=== PATIENT | male | born 1945 | race Caucasian/White ===

== ENCOUNTER → 2017-05-30 | Outpatient (CLI) | payer BC ==
[~2017-05-30] MED LIST: FRRS300 PO; OMEP40CA PO; PRSUNK PO; TPRSRUNK PO
[2017-05-30 17:03] LABS: BLOOD UREA NITROGEN 17 mg/dl (7-18); CALCIUM 9.1 mg/dl (8.5-10.1); CARBON DIOXIDE 25 mmol/L (21-32); CREATININE 1.04 mg/dl (0.60-1.40); GLUCOSE 102 mg/dl (70-99); SODIUM 140 mmol/L (136-145)
== END | disposition home or self-care (01) ==
LOC: C.LAB 15:47
PROVIDERS: ATTEND Family Medicine
DX: I10 Essential (primary) hypertension (principal)

== ENCOUNTER 2020-05-30 18:02 | Inpatient (IN) ==
[2020-05-30] MEDS ORDERED: ONDANSETRON INJ 2 MG/ML 2 ML VIAL IV STA ×2 (18:36→21:22)
[2020-05-30] MEDS ORDERED: LIDOCAINE/EPINEPH/TETRACAINE 1 EA SYR EXT STA (18:37)
--- NOTE | 2020-05-30 18:44 | Emergency Department Note ---
Impression & Plan Cervical spine fracture, Fall, Forehead laceration, Complex laceration of face, Injury to ligament of cervical spine ED Provider Note INFORMANT: Patient ED PROVIDER(S): Mihai Barahona MD CHIEF COMPLAINT: Fall PLAN: Disposition: Admitted Condition: Good Outpatient prescription management: none Referral: None MEDICAL DECISION MAKING: Patient was evaluated. He had suffered lacerations to the forehead and face from his accidental fall. During the initial evaluation after examining his wounds he felt mildly nauseated and sweaty. He was noted to have a drop in his blood pressure. He stated he did not feel anything like this prior to the fall. He had an IV established. He was given Zofran and a 500 mL normal saline bolus. He felt much better. His drop in blood pressure resolved. I suspect a vagal response due to the evaluation and examination of his wounds. Let gel panda lied. He was sent for CT imaging. CT imaging questioned a C5 injury. I discussed this with the radiologist. MRI was ordered. The patient had his wounds repaired by Benji Mendoza PA-C. Please see his note for further details. The patient was found to have disruption of the anterior longitudinal ligament as well as disruption of the posterior longitudinal ligament. He was also noted to have orbital fractures on the right side. Clinically he did not have any entrapment or any significant eye findings. I discussed the case with orthopedic spine, Dr. Sow. The patient was already in a hard collar. He recommended a [place] J collar. He and I discussed having the patient admitted and he would consult on the patient given the possibility of this being an unstable injury. Patient was in agreement. Dr. Sow did ask for internal medicine to admit the patient. I did discuss the case with Dr. Callaway of the hospitalist service. She evaluated the patient and admitted him. We also discussed OMFS consultation and initiation of prophylactic antibiotic due to the sinus fracture. She did order clindamycin and will consult with Dr. Troncoso. Patient was reassessed multiple times in the ER. He was doing well. He remained neurologically intact. Triage Nursing notes reviewed and agree them. Additional history obtained from the patient's . I did inform her of the findings and need for admission. Vital Signs: reviewed and remarkable for no significant abnormalities Differential diagnosis: Concussion, contusion, soft tissue injury, fracture, subdural hematoma, epidural hematoma, intraparenchymal hemorrhage, as well as other pathologies. Diagnostics interpreted by me: Cardiac Monitoring: Cardiac monitoring ordered by me: The patient was placed on continuous cardiac monitoring and observed. It revealed a normal sinus rhythm at 64 beats per minute without ectopy or evidence of dysrhythmia. Imaging studies: CT scan of the head, facial bones, and cervical spine were negative for fracture or dislocation. Tissue injury noted. No intracranial bleeding or other pathology. Consultation(s): Dr. Sow orthopedic spine Dr. Callaway of hospitalist service HPI: The patient is a 75 year old male who presents to the Emergency Room with complaints of a fall. This started just prior to arrival and is from an accidental trip in his home. He was walking from one room to the other and caught his foot on a step. He fell forward and struck his right face and forehead. He said he felt completely normal prior to and it was accidental. He did not feel ill at all this week. The patient believes his tetanus shot is up-to-date. The patient also notes the following associated symptoms, minimal strain to the right trapezius, laceration to the forehead and lateral to the right eye. The patient has had pressure dressings applied by EMS for relieving factors. Current pain is rated as 2/10. Pt denies LOC, visual changes, neck pain, chest pain, breathing difficulties, nausea, vomiting, abdominal pain, back pain, extremity pain, numbness, weakness, or other complaints. ROS: See above HPI for pertinent positives & negatives. A total of 10 systems reviewed and were otherwise negative. PAST MEDICAL HISTORY:See Below , hypertension PAST SURGICAL HISTORY:See Below, fundoplication FAMILY HISTORY:See Below SOCIAL HISTORY:See Below, HOME MEDICATIONS:See Below ALLERGIES:See Below VITALS:See Below PHYSICAL EXAMINATION: GENERAL: Awake, alert, well-appearing, in no distress HENT: Normocephalic, large central forehead laceration noted with visible skull. No obvious skull defect. There is a laceration that is stellate and irregular lateral to the right eye. Oropharynx unremarkable. EYES: Normal conjunctiva on the left. Sclera non-icteric. There is a mild subconjunctival hemorrhage noted on the right side. Anterior chambers are clear. Pupils are equal round and reactive. EOMI. NECK: Inspection normal. Non-tender in the midline. Mild right lateral tenderness.. Supple. No nuchal rigidity. FROM. No masses. RESPIRATORY: Clear to auscultation. No wheezes. No rales. Normal respiratory effort. CARDIAC: Normal rate. Normal rhythm. No murmurs. No rubs. Extremities warm and well perfused. Pulses equal. No JVD. GI: Soft, non-distended. No tenderness to palpation. No rebound or guarding. No masses. RECTAL: Deferred. MUSCULOSKELETAL: Atraumatic. Chest examination reveals no tenderness. The back is symmetrical on inspection without obvious abnormality. There is no CVA t enderness to palpation. No joint edema. LOWER EXTREMITIES: Calves are equal size bilaterally and non-tender. No edema. No discoloration. NEURO: Normal sensorium. No sensory or motor deficits noted. SKIN: No rash or jaundice noted. ED COURSE: Critical Care: I have personally spent greater than 35 minutes of critical care time in the direct management of this patient. This includes bedside care, interpretation of diagnostic studies, and testing, discussion with consultants, patient, and family members, and other required patient management activities. These minutes are in excess of all separately billable procedures. Mihai Barahona MD Past Med/Surg History Medical History (Updated 05/31/20 @ 03:14 by Mihai Barahona MD) BPH (benign prostatic hyperplasia) Hypertension Surgical History (Updated 05/30/20 @ 22:57 by Missy Callaway DO) History of cholecystectomy History of hernia repair Family History (Updated 05/30/20 @ 22:57 by Misys Callaway DO) Other Family history non-contributory Social History (Updated 05/30/20 @ 22:57 by Missy Callaway DO) Smoking Status: Never smoker Second Hand Exposure: No; Hx Alcohol Use: Yes Alcohol type: beer, wine and hard liquor Hx Substance Use: No Preferred Language: Telugu Communication Ability: Effective [place] Required: No Beliefs That Will Affect Care: None marital status: Current Living Situation: Spouse Feels Safe at Home: Yes Assistive Devices: Glasses Allergies Allergies Allergy/AdvReac Type Severity Reaction Status Date / Time Penicillins Allergy Unknown Unknown Verified 05/30/20 20:23 Sulfa (Sulfonamide Allergy Unknown Unknown Verified 05/30/20 20:23 Antibiotics) Home Meds Home Medications Medication Instructions Recorded Confirmed finasteride 5 mg PO DAILY 05/05/19 05/30/20 hydrochlorothiazide 25 mg PO DAILY 05/05/19 05/30/20 metoprolol tartrate 50 mg PO BID 05/05/19 05/30/20 glucos sul [id number] 2 cap PO BID 05/30/20 05/30/20 [Glucosamine Chondroitin] lisinopril 40 mg PO DAILY 05/30/20 05/30/20 multivitamin [Multiple Vitamin] 1 tab PO DAILY 05/30/20 05/30/20 vitamin [id number] acid 1 tab PO DAILY 05/30/20 05/30/20 Results & Data (ED) Vital Signs Vital Signs - 24 hr 05/30/20 18:06 05/30/20 18:09 05/30/20 18:30 Temperature 36.4 C L Temperature Source Oral Pulse Rate 71 72 74 Pulse Rate from SpO2 Sensor 71 70 Respiratory Rate 16 18 22 Respiratory Effort / Characteristics Non-Labored Spontaneous Respiratory Depth Normal Respiratory Pattern Regular Blood Pressure 104/63 104/63 83/55 L Blood Pressure Mean 76 76 64 Pulse Oximetry 97 94 93 Oxygen Delivery Method Room Air Sepsis Recent Fever Within 48 Hours No Sepsis New/Unexplained Change in Mental Status No Sepsis Action Taken by Nursing No Action Required 05/30/20 18:34 05/30/20 18:35 05/30/20 18:39 Temperature Temperature Source Pulse Rate 64 65 62 Pulse Rate from SpO2 Sensor 66 61 Respiratory Rate 14 18 16 Respiratory Effort / Characteristics Respiratory Depth Respiratory Pattern Blood Pressure 75/41 L 74/40 L 57/35 L Blood Pressure Mean 52 51 42 Pulse Oximetry 95 95 98 Oxygen Delivery Method Sepsis Recent Fever Within 48 Hours Sepsis New/Unexplained Change in Mental Status Sepsis Action Taken by Nursing 05/30/20 18:41 05/30/20 18:43 05/30/20 18:45 Temperature Temperature Source Pulse Rate 58 L 60 59 L Pulse Rate from SpO2 Sensor 58 L 60 59 L Respiratory Rate 16 17 12 Respiratory Effort / Characteristics Respiratory Depth Respiratory Pattern Blood Pressure 64/42 L 78/47 L 95/50 L Blood Pressure Mean 49 57 65 Pulse Oximetry 93 93 94 Oxygen Delivery Method Sepsis Recent Fever Within 48 Hours Sepsis New/Unexplained Change in Mental Status Sepsis Action Taken by Nursing 05/30/20 18:50 05/30/20 18:56 05/30/20 20:05 Temperature Temperature Source Pulse Rate 61 74 81 Pulse Rate from SpO2 Sensor 61 69 80 Respiratory Rate 14 19 12 Respiratory Effort / Characteristics Respiratory Depth Respiratory Pattern Blood Pressure 107/73 100/63 132/72 Blood Pressure Mean 84 75 92 Pulse Oximetry 95 95 100 Oxygen Delivery Method Room Air Room Air Room Air Sepsis Recent Fever Within 48 Hours Sepsis New/Unexplained Change in Mental Status Sepsis Action Taken by Nursing 05/30/20 21:30 05/30/20 21:35 05/30/20 21:40 Temperature Temperature Source Pulse Rate Pulse Rate from SpO2 Sensor 87 85 89 Respiratory Rate 20 18 Respiratory Effort / Characteristics Respiratory Depth Respiratory Pattern Blood Pressure 113/65 135/69 121/83 Blood Pressure Mean 81 91 95 Pulse Oximetry 96 96 96 Oxygen Delivery Method Room Air Room Air Room Air Sepsis Recent Fever Within 48 Hours Sepsis New/Unexplained Change in Mental Status Sepsis Action Taken by Nursing 05/30/20 21:45 05/30/20 21:50 05/30/20 21:55 Temperature Temperature Source Pulse Rate Pulse Rate from SpO2 Sensor 91 H 88 88 Respiratory Rate Respiratory Effort / Characteristics Respiratory Depth Respiratory Pattern Blood Pressure 130/79 124/70 119/68 Blood Pressure Mean 96 88 85 Pulse Oximetry 96 95 95 Oxygen Delivery Method Room Air Room Air Room Air Sepsis Recent Fever Within 48 Hours Sepsis New/Unexplained Change in Mental Status Sepsis Action Taken by Nursing 05/30/20 22:00 05/30/20 22:05 05/30/20 22:10 Temperature Temperature Source Pulse Rate Pulse Rate from SpO2 Sensor 91 H 87 87 Respiratory Rate Respiratory Effort / Characteristics Respiratory Depth Respiratory Pattern Blood Pressure 125/73 106/82 137/82 Blood Pressure Mean 90 90 100 Pulse Oximetry 94 95 96 Oxygen Delivery Method Room Air Room Air Room Air Sepsis Recent Fever Within 48 Hours Sepsis New/Unexplained Change in Mental Status Sepsis Action Taken by Nursing 05/30/20 22:15 05/30/20 22:21 05/30/20 22:25 Temperature Temperature Source Pulse Rate Pulse Rate from SpO2 Sensor 96 H 95 H 92 H Respiratory Rate 20 18 Respiratory Effort / Characteristics Respiratory Depth Respiratory Pattern Blood Pressure 117/83 106/82 127/64 Blood Pressure Mean 94 90 85 Pulse Oximetry 95 94 95 Oxygen Delivery Method Room Air Room Air Room Air Sepsis Recent Fever Within 48 Hours Sepsis New/Unexplained Change in Mental Status Sepsis Action Taken by Nursing 05/30/20 22:30 05/30/20 22:35 Temperature Temperature Source Pulse Rate Pulse Rate from SpO2 Sensor 95 H 99 H Respiratory Rate 18 20 Respiratory Effort / Characteristics Respiratory Depth Respiratory Pattern Blood Pressure 106/71 119/70 Blood Pressure Mean 82 86 Pulse Oximetry 93 94 Oxygen Delivery Method Room Air Room Air Sepsis Recent Fever Within 48 Hours Sepsis New/Unexplained Change in Mental Status Sepsis Action Taken by Nursing Laboratory Data Result diagrams: 05/30/20 18:40 05/30/20 23:03 Lab Results 05/30/20 05/30/20 05/30/20 Range/Units 18:40 18:40 22:30 WBC 13.78 H (4.8-10.8) K/uL RBC 4.88 (4.7-6.1) M/uL Hgb 14.6 (14.0-18.0) g/dL Hct 43.9 (42-52) % MCV 90.0 (80-100) fL MCH 29.9 (25-34) pg MCHC 33.3 (32-36) g/dL RDW Std Deviation 45.7 (36.4-46.3) fL RDW Coeff of Gi 13.9 (11.5-14.5) % Plt Count 389 (130-400) K/uL MPV 9.1 (7.4-10.4) fL Immature Gran % (Auto) 0.5 % Neut % (Auto) 69.8 % Lymph % (Auto) 22.0 % [place] % (Auto) 5.7 % Eos % (Auto) 1.9 % Baso % (Auto) 0.1 % Neut # (Auto) 9.62 H (1.4-6.5) K/uL Lymph # (Auto) 3.03 (1.2-3.4) K/uL [place] # (Auto) 0.78 H (0.11-0.59) K/uL Eos # (Auto) 0.26 (0-0.5) K/uL Baso # (Auto) 0.02 (0-0.2) K/uL Immature Gran # (Auto) 0.07 H (0.00-0.02) K/uL Sodium 140 (136-145) mmol/L Potassium 4.3 (3.5-5.1) mmol/L Chloride 111 H (98-107) mmol/L Carbon Dioxide 23 (21-32) mmol/L Anion Gap 7.0 (3-11) BUN 58 H (7-18) mg/dl Creatinine 1.90 H (0.6-1.4) mg/dl Est Cr Clr Drug Dosing 37.1 ml/min Est GFR ( Amer) 38.8 Est GFR (Non-Af Amer) 33.5 BUN/Creatinine Ratio 30.7 H (10-20) Glucose 127 H (70-99) mg/dl Calcium 10.1 (8.5-10.1) mg/dl Total Bilirubin 0.3 (0.2-1) mg/dl AST 12 L (15-37) U/L ALT 16 (12-78) U/L Alkaline Phosphatase 71 (45-117) U/L Total Protein 7.5 (6.4-8.2) gm/dl Albumin 3.3 L (3.4-5.0) gm/dl Globulin 4.2 H (2.5-4.0) gm/dl Albumin/Globulin Ratio 0.8 L (0.9-2) COVID-19 Eval [facility] SARS-CoV-2, RNA, NAAT (NEGATIVE) 05/30/20 Range/Units 22:30 WBC (4.8-10.8) K/uL RBC (4.7-6.1) M/uL Hgb (14.0-18.0) g/dL Hct (42-52) % MCV (80-100) fL MCH (25-34) pg MCHC (32-36) g/dL RDW Std Deviation (36.4-46.3) fL RDW Coeff of Gi (11.5-14.5) % Plt Count (130-400) K/uL MPV (7.4-10.4) fL Immature Gran % (Auto) % Neut % (Auto) % Lymph % (Auto) % [place] % (Auto) % Eos % (Auto) % Baso % (Auto) % Neut # (Auto) (1.4-6.5) K/uL Lymph # (Auto) (1.2-3.4) K/uL [place] # (Auto) (0.11-0.59) K/uL Eos # (Auto) (0-0.5) K/uL Baso # (Auto) (0-0.2) K/uL Immature Gran # (Auto) (0.00-0.02) K/uL Sodium (136-145) mmol/L Potassium (3.5-5.1) mmol/L Chloride (98-107) mmol/L Carbon Dioxide (21-32) mmol/L Anion Gap (3-11) BUN (7-18) mg/dl Creatinine (0.6-1.4) mg/dl Est Cr Clr Drug Dosing ml/min Est GFR ( Amer) Est GFR (Non-Af Amer) BUN/Creatinine Ratio (10-20) Glucose (70-99) mg/dl Calcium (8.5-10.1) mg/dl Total Bilirubin (0.2-1) mg/dl AST (15-37) U/L ALT (12-78) U/L Alkaline Phosphatase (45-117) U/L Total Protein (6.4-8.2) gm/dl Albumin (3.4-5.0) gm/dl Globulin (2.5-4.0) gm/dl Albumin/Globulin Ratio (0.9-2) COVID-19 Eval Order SARS-CoV-2, RNA, NAAT NEGATIVE (NEGATIVE) Administered Medications Lactated Ringer's (Lr) 1,000 mls @ 125 mls/hr IV .Q8H [facility] [place] Stop: 05/31/20 17:27 Last Admin: 05/31/20 02:16 Dose: 125 mls/hr Documented by: [id number] Clindamycin Phosphate 900 mg/ (Dextrose) 56 mls @ 112 mls/hr IV Q8H [facility] [place] Stop: 06/10/20 01:59 Last Admin: 05/31/20 02:16 Dose: 112 mls/hr Documented by: [id number] Discontinued Medications Acetaminophen (Acetaminophen 325 Mg Tab) Confirm Administered Dose 650 mg .ROUTE .STK-MED ONE Stop: 05/30/20 23:02 Last Admin: 05/30/20 23:05 Dose: 650 mg Documented by: [id number] Acetaminophen (Acetaminophen 325 Mg Tab) 650 mg PO NOW STA Stop: 05/31/20 00:04 Last Admin: 05/31/20 00:46 Dose: Not Given Documented by: [id number] Sodium Chloride (Nss) 500 mls @ 999 mls/hr IV .Q31M [facility] [place] Stop: 05/30/20 19:15 Last Infusion: 05/30/20 19:15 Dose: 0 mls/hr Documented by: [id number] Admin: 05/30/20 18:41 Dose: 999 mls/hr Documented by: [id number] Ioversol (Optiray 320 125ml) 125 ml IV ONCE ONE Stop: 05/30/20 23:41 Last Admin: 05/30/20 23:40 Dose: 118 ml Documented by: [id number] Lidocaine (Lidocaine/Epineph/Tetracaine 1 Ea Syr) 1 ea EXT NOW STA Stop: 05/30/20 18:38 Last Admin: 05/30/20 18:44 Dose: 1 ea Documented by: [id number] Lidocaine (Lidocaine 5% 1 Patch) Confirm Administered Dose 1 patch TD .STK-MED ONE Stop: 05/30/20 23:02 Last Admin: 05/30/20 23:06 Dose: 1 patch Documented by: [id number] Lidocaine HCl (Xylocaine 1%/Sod Bicarb 20 Ml Vial) Confirm Administered Dose 20 ml INFIL .STK-MED ONE Stop: 05/30/20 21:51 Last Admin: 05/30/20 21:53 Dose: 20 ml Documented by: [id number] Ondansetron HCl (Ondansetron Inj 2 Mg/Ml 2 Ml Vial) 4 mg IV NOW STA Stop: 05/30/20 18:37 Last Admin: 05/30/20 18:44 Dose: 4 mg Documented by: [id number] Ondansetron HCl (Ondansetron Inj 2 Mg/Ml 2 Ml Vial) 4 mg IV NOW STA Stop: 05/30/20 21:23 Last Admin: 05/30/20 21:26 Dose: 4 mg Documented by: [id number] Ondansetron HCl (Ondansetron Inj 2 Mg/Ml 2 Ml Vial) 4 mg IV NOW STA Stop: 05/31/20 00:04 Last Admin: 05/31/20 00:46 Dose: Not Given Documented by: [id number] Ondansetron HCl (Ondansetron Inj 2 Mg/Ml 2 Ml Vial) Confirm Administered Dose 4 mg .ROUTE .STK-MED ONE Stop: 05/31/20 00:20 Last Admin: 05/31/20 00:24 Dose: 4 mg Documented by: [id number] Oxycodone HCl (Oxycodone Hcl Ir 5 Mg Tab (Immediate Release)) 5 mg PO NOW STA Stop: 05/31/20 00:37 Last Admin: 05/31/20 00:46 Dose: 5 mg Documented by: [id number] Discharge Plan Visit Data Chief Complaint: Fall Stated Complaint: FALL w/ HEAD LAC ED Provider: Mihai Barahona Discharge Problem: Cervical spine fracture, Fall, Forehead laceration, Complex laceration of face, Injury to ligament of cervical spine Patient Disposition: Admitted As Inpatient Discharge Instructions Interventions: ED Discharge Assessment Last Done: 05/31/20 00:57 Discharge Problem: Forehead laceration Qualifiers: Encounter type: initial encounter Qualified Code(s): S01.81XA - Laceration without foreign body of other part of head, initial encounter
[2020-05-30] MEDS ORDERED: SODIUM CHLORIDE 0.9% 500 ML IV SCH (18:45)
[2020-05-30 18:48] LABS: Basophils # (auto) 0.02 K/uL (0-0.2); Basophils % (auto) 0.1 %; Eosinophils # (auto) 0.26 K/uL (0-0.5); Eosinophils % (auto) 1.9 %; Hematocrit (blood only) 43.9 % (42-52); Hemoglobin 14.6 g/dL (14.0-18.0); Immature Granulocytes # (auto) 0.07 K/uL (0.00-0.02); Immature Granulocytes % (auto) 0.5 %; Lymphocytes # (auto) 3.03 K/uL (1.2-3.4); Mean Corpuscular Hemoglobin 29.9 pg (25-34); Mean Corpuscular Hgb Conc 33.3 g/dL (32-36); Mean Platelet Volume 9.1 fL (7.4-10.4); Monocytes # (auto) 0.78 K/uL (0.11-0.59); Monocytes % (auto) 5.7 %; Neutrophils # (auto) 9.62 K/uL (1.4-6.5); Neutrophils % (auto) 69.8 %; Platelet Count 389 K/uL (130-400); RDW Coefficient of Variation 13.9 % (11.5-14.5); RDW Standard Deviation 45.7 fL (36.4-46.3); Red Blood Count 4.88 M/uL (4.7-6.1); White Blood Count 13.78 K/uL (4.8-10.8)
--- NOTE | 2020-05-30 19:30 | CT Scan Report ---
HEAD CT NONCONTRAST CT DOSE: HISTORY: fall TECHNIQUE: Multiaxial CT images of the head were performed without the use of intravenous contrast. A utomated exposure control was utilized for this study. A dose lowering technique was utilized adheri ng to the principles of ALARA. Comparison: None. Findings: Trace fluid within the right maxillary sinus. The mastoid air cells are clear. Right fronta l scalp swelling with a small laceration. The calvarium and skull base are intact. The ventricles and sulci are within normal limits. There is no mass, hematoma, midline shift, or acute infarct. Impression: No acute intracranial abnormality. Right frontal scalp injury. ACT 112: Negative or not required by law. Electronically signed by: Alvarado Bernal M.D. 05/30/2020 7:29 PM
--- NOTE | 2020-05-30 19:35 | CT Scan Report ---
CERVICAL SPINE CT CT DOSE: HISTORY: fall TECHNIQUE: Multiaxial CT images of the cervical spine were performed and reformatted in the sagittal and coronal plane without the use of contrast. A dose lowering technique was utilized adhering to th e principles of ALARA. COMPARISON: None. FINDINGS: The C4-C5 posterior elements are fused. No subluxation. Moderate disc space narrowing at C5 -C6. Prevertebral soft tissues and the C1-C2 interval are intact. No pneumothorax. Small lucency at t he spinous process of C5. There is no surrounding edema. Therefore, this favors a vascular channel. A small nondisplaced fracture cannot be excluded. Otherwise, no fractures identified within the cervic al spine. IMPRESSION: Small lucency at the spinous process of C5 without surrounding edema. Therefore, this favors a vascul ar channel. A small nondisplaced fracture cannot be excluded. ACT 112: Negative or not required by law. Electronically signed by: Alvarado Bernal M.D. 05/30/2020 7:34 PM
--- NOTE | 2020-05-30 19:41 | Emergency Department Note ---
ED Visit Note 75-year-old male who I was asked by Dr. Barahona to perform facial laceration repairs. Please see Dr. Barahona's dictation for further treatment and final disposition. PROCEDURE NOTE: Examination shows 2 separate fascial lacerations. The larger central forehead laceration is moderately gaping, and measures 5 cm in length. No active bleeding or hematoma formation. The patient also has a stellate and macerated laceration at the right eye margin and upper eyelid/lower eyebrow region. There is a flap of tissue that is approximately 1.75 cm x 4 mm, that is avulsed from the upper eyebrow lesion, and reflected inferolaterally. The tissue surrounding the flap is also macerated without any obvious soft tissue loss. The laceration curves around the inferolateral eyes/lower eyelid region as well with mild gaping. The patient provided verbal consent for laceration repair under local anesthesia. LET gel was initially applied for local anesthesia. Peripheral tissue was then cleansed with iodine. Initial attention was directed to the central forehead laceration. In sterile fashion, the wound was explored to show no underlying debris or active bleeding. Underlying subcutaneous tissue with a total length of 5 cm was approximated using mostly 4-0 Vicryl running sutures with occasional interruption. The wound was then reirrigated, with final closure using 5-0 nylon simple interrupted sutures. Total wound repair length of each subcutaneous Vicryl closure, and external nylon closure was 5 cm in length. Attention was then directed to the stellate laceration of the lateral eye region. I did close the inferolateral lacerations with 6-0 nylon simple erupted sutures. Wound evaluation was discussed again with Dr. Barahona, who felt that the flap could be successfully approximated with additional 6-0 nylon simple interrupted sutures. I did have to apply additional buffered lidocaine 1% local injection, which helped to further expand the tissue for ease of approximation. The wound was then grossly approximated with additional 6-0 nylon simple erupted sutures. Total repaired length was 4 cm. Patient did not have any bleeding from wound repair, and tolerated the procedure well. . : Forehead laceration Qualifiers: Encounter type: initial encounter Qualified Code(s): S01.81XA - Laceration without foreign body of other part of head, initial encounter
--- NOTE | 2020-05-30 19:48 | CT Scan Report ---
MAXILLOFACIAL CT CT DOSE: 1089.15 mGy.cm HISTORY: fall TECHNIQUE: Multiaxial CT images of the maxillofacial region were performed and reformatted in the cor onal plane without the use of contrast. A dose lowering technique was utilized adhering to the princ iples of ANGELO. COMPARISON: None. FINDINGS: Right orbital floor fracture demonstrating herniation of a small amount of intraorbital fat through the 5 mm defect along the medial aspect of the orbital floor. There is mild thickening of th e right inferior rectus muscle. There is trace extraconal hemorrhage. The orbital floor fracture is d epressed up to 4 mm. There is also nondisplaced fracture within the medial wall the right orbit. Righ t periorbital soft tissue swelling with a small laceration. Deformity within the nasal bones likely r epresent old, healed fractures. Trace fluid within the right maxillary sinus which likely represents hemorrhage. The skull base, pterygoid plates, mandible, zygomatic arches, and left orbit are intact. There is mild left nasal septal deviation. The globes and retrobulbar fat are intact. IMPRESSION: 1. Right orbital floor fracture which is mildly displaced and demonstrates a small amount of intraorb ital fat herniating through a 5 mm defect. The right inferior rectus muscle slightly thickened but do es not extend to the defect. Clinical correlation recommended to exclude the less likely possibility of entrapment. 2. Nondisplaced fracture within the medial wall of the right orbit. ACT 112: Negative or not required by law. Electronically signed by: Alvarado Bernal M.D. 05/30/2020 7:47 PM
--- NOTE | 2020-05-30 21:07 | Magnetic Resonance Report ---
CERVICAL SPINE MRI HISTORY: fall, C5 injury suspected on CT TECHNIQUE: Multiplanar multisequence MRI of the cervical spine was performed without the use of contr ast. COMPARISON STUDY: Cervical spine CT 05/30/2020. FINDINGS: Straightening of cervical spine. Moderate disc space narrowing at C5-C6. There is edema bot h within and surrounding the C5 spinous process. Therefore, the CT finding would be consistent with a n acute nondisplaced fracture at the spinous process. There is also a full-thickness tear through the anterior longitudinal ligament at C6-C7. This is consistent with acute injury. There is fluid/fractu re through the C6-C7 disc space with prevertebral edema from C6 through T1. There appears to be a pos sible tear through the posterior longitudinal ligament at the C5-C6 level. Therefore, these findings are consistent with an unstable cervical spine injury. There is also mild marrow edema within the lef t C6 facet which could also represent an occult injury. No additional fractures within the cervical s pine. The C1-C2 interval is intact. The visualized posterior fossa is unremarkable. Cervical spinal c ord demonstrates a normal signal intensity. There is trace fluid posterior to the C6 vertebral body m easuring 1 mm in thickness. This could represent a tiny epidural hematoma versus edema secondary to t he torn posterior longitudinal ligament. C2-C3: No significant central canal or neural foraminal narrowing. C3-C4: No significant central canal narrowing. There is moderate to severe left and mild right neural foraminal narrowing due to the uncovertebral hypertrophy. C4-C5: No significant central canal or neural foraminal narrowing. C5-C6: Broad-based posterior disc osteophyte complex which abuts and slightly deforms anterior cord c onsistent with mild central canal and mild bilateral neural foraminal narrowing. C6-C7: Small broad-based posterior disc osteophyte complex without significant central canal or neura l foraminal narrowing. C7-T1: No significant central canal or neural foraminal narrowing. IMPRESSION: 1. Edema both within and surrounding the C5 spinous process which would confirm the CT finding of an acute nondisplaced fracture at this location. 2. Full-thickness tear through the anterior longitudinal ligament at C6-C7 with fluid/fracture extend ing through the C6-C7 disc space. There is also suggestion of a small tear through the posterior long itudinal ligament at C5-C6. In conjunction with the C5-6 spinous process fracture, this is consistent with an unstable cervical spine injury. 3. Prevertebral edema from C6 through T1 due to the acute injury. 4. Trace fluid posterior to the C6 vertebral body measuring 1 mm in thickness. This could represent a tiny epidural hematoma versus edema secondary to the torn posterior longitudinal ligament. ACT 112: Negative or not required by law. Electronically signed by: Alvarado Bernal M.D. 05/30/2020 9:05 PM
[2020-05-30] MEDS ORDERED: XYLOCAINE 1%/SOD BICARB 20 ML VIAL INFIL ONE (21:50)
[2020-05-30 22:34] LABS: Albumin Level 3.3 gm/dl (3.4-5.0); BUN Creatinine Ratio 30.7 (10-20); Calcium 10.1 mg/dl (8.5-10.1); Creatinine Clr Calc Pharmacy 37.1 ml/min; Est GFR (African American) 38.8; Est GFR (Non-African American) 33.5; Potassium 4.3 mmol/L (3.5-5.1)
[2020-05-30 22:37] LABS: Albumin Globulin Ratio 0.8 (0.9-2); Bilirubin,Total 0.3 mg/dl (0.2-1); Globulin 4.2 gm/dl (2.5-4.0); Total Protein 7.5 gm/dl (6.4-8.2)
--- NOTE | 2020-05-30 22:47 | History & Physical Report ---
Date of Service May 30, 2020 Assessment & Plan (1) Ligament tear: 75yo male s/p mechanical fall resulting in head trauma, extension injury to cervical spine found with full-thickness tear through the anterior longitudinal ligament at C6-C7 with fluid/fracture. Possible small tear through the posterior longitudinal ligament at C5-C6. C5-C6 spinous process fracture. Patient with prevertebral edema from C6-T1. Patient doing well. He is neurologically intact. Pain is well controlled. Case was discussed with Orthopedics - possible OR in AM. -Admit to medical floor -Maintain cervical collar -Neuro checks q 4 hours -Orthopedics consultation appreciated -Pain control with Lidoderm patch, Tylenol and Oxycodone PRN -Check CTA neck to rule out possible vascular dissection given mechanism/severity of head trauma Patient with well controlled hypertension. He has no known CAD, no history of arrhythmia, CHF or other cardiac conditions. No history of pulmonary disease. He is active and independent. Able to complete 4 METS of activity without difficulty. No history of adverse reaction to anesthesia. Per RSRI criteria, patient is medically optimized to proceed to surgery with no additional testing. -Check PT/INR -NPO after midnight -Will hold HCTZ and Lisinopril perioperatively Present on Admission?: Yes (2) Cervical spine fracture: As above. S/p mechanical fall -Check CTA head -Maintain cervical collar -Ortho consultation appreciated Present on Admission?: Yes (3) Orbital fracture: No visual disturbance or entrapment -Continue to monitor -Surgical consultation if needed Present on Admission?: Yes (4) Forehead laceration: s/p repair -wound management -pain control as needed Present on Admission?: Yes (5) Hypertension: Blood pressure stable at present -Hold Lisinopril and HCTZ -Continue metoprolol -Continue to monitor Present on Admission?: Yes (6) BPH (benign prostatic hyperplasia): Chronic -Continue Finasteride F/E/N - LR at 125mL/hr x 2 liters, monitor renal function and electrolytes, NPO for possible OR in AM Ppx - SCDs Code - Full per discussion with patient Dispo - Admit to medical floor Present on Admission?: Yes History of Present Illness Chief Complaint: laceration, fall Primary Care Provider: Perry Vogel Malu is a 75yo male with history of HTN, BPH presenting after mechanical fall at home resulting in a C5-C6 spinous process fracture as well as full thickness tear through the anterior longitudinal ligament at C6-C7 - additional findings per imaging results below. Patient suffered facial trauma as well with right periorbital and forehead lacerations. He was walking in his home when he tripped over the carpet and fell, hitting his head on the dining room table, neck extended during time of injury. He had pain and bleeding from the forehead and right eye immediately following the event. Denies pain elsewhere. He denies CP/palpitations/dizziness/SOB preceding or following the event. He has full recollection of the fall and does not think he lost consciousness. He denies [place], visual disturbance, numbness, weakness. Presently with discomfort at the laceration sites as well as right shoulder discomfort/trapezius muscle tenderness. No additional complaints at this time. Upon arrival to the ER patient afebrile, HD stable, NAD. Lacerations repaired at bedside without difficulty. Patient did have a brief near-syncopal event with hypotension while ER attending was probing his lacerations. BP quickly improved with no intervention. ER course: Mike, NSS Allergies Allergy/AdvReac Type Severity Reaction Status Date / Time Penicillins Allergy Unknown Unknown Verified 05/30/20 20:23 Sulfa (Sulfonamide Allergy Unknown Unknown Verified 05/30/20 20:23 Antibiotics) Home Medications Medication Instructions Recorded Confirmed Type finasteride 5 mg PO DAILY 05/05/19 05/30/20 History hydrochlorothiazide 25 mg PO DAILY 05/05/19 05/30/20 History metoprolol tartrate 50 mg PO BID 05/05/19 05/30/20 History glucos sul [id number]-[id number]-C-Mn 2 cap PO BID 05/30/20 05/30/20 History [Glucosamine Chondroitin] lisinopril 40 mg PO DAILY 05/30/20 05/30/20 History multivitamin [Multiple Vitamin] 1 tab PO DAILY 05/30/20 05/30/20 History vitamin H10-axjfc acid 1 tab PO DAILY 05/30/20 05/30/20 History Past Med/Surg History Medical History (Updated 05/30/20 @ 23:30 by Missy Callaway DO) BPH (benign prostatic hyperplasia) Hypertension Surgical History (Updated 05/30/20 @ 22:57 by Missy Callaway DO) History of cholecystectomy History of hernia repair Family History (Updated 05/30/20 @ 22:57 by Missy Callaway DO) Other Family history non-contributory Social History (Updated 05/30/20 @ 22:57 by Missy Callaway DO) Smoking Status: Never smoker Hx Alcohol Use: Yes Hx Substance Use: No marital status: Feels Safe at Home: Yes Review of Systems Review of Systems: All systems reviewed & are unremarkable except as noted in HPI & below Physical Exam Physical Exam: General: patient resting comfortably, NAD, non-toxic in appearance, AA&O x 4 Skin: laceration repair with nylon sutures on forehead and right periorbital region - well approximated with no additional bleeding HEENT: PERRL, subconjunctival hemorrhage on right, EOMI, anicteric sclera, external ear normal to inspection and nontender, no hemotympanum, nares patent, moist mucus membranes, dentition intact, no oropharyngeal lesions, hard cervical collar in place, trachea midline, no LAD, no thyromegaly, no JVD Heart: +S1/S2, regular, 2/6 COLLIN at 2nd right ICS Lungs: equal air entry bilaterally, no rales/rhonchi/wheezes Abd: +BS, soft, NT/ND, no masses/organomegaly/ascites Ext: warm, 2+ pulses in UE/LE bilaterally, no clubbing/cyanosis or edema Neuro: nonfocal, patient AA&O x 4, speech intact, no facial droop, moving all extremities on command with equal strength 5/5 Results & Data Results & Data ([facility]) Vital Signs (Past 12 Hours) Vital Signs Temp Pulse Resp BP Pulse Ox 05/30/20 22:15 117/83 95 05/30/20 22:10 137/82 96 05/30/20 22:05 106/82 95 05/30/20 22:00 125/73 94 05/30/20 21:55 119/68 95 05/30/20 21:50 124/70 95 05/30/20 21:45 130/79 96 05/30/20 21:40 121/83 96 05/30/20 21:35 18 135/69 96 05/30/20 21:30 20 113/65 96 05/30/20 20:05 81 12 132/72 100 05/30/20 18:56 74 19 100/63 95 05/30/20 18:50 61 14 107/73 95 05/30/20 18:45 59 L 12 95/50 L 94 05/30/20 18:43 60 17 78/47 L 93 05/30/20 18:41 58 L 16 64/42 L 93 05/30/20 18:39 62 16 57/35 L 98 05/30/20 18:35 65 18 74/40 L 95 05/30/20 18:34 64 14 75/41 L 95 05/30/20 18:30 74 22 83/55 L 93 05/30/20 18:09 36.4 C L 72 18 104/63 94 05/30/20 18:06 71 16 104/63 97 Laboratory Results Lab Results 05/30/20 05/30/20 05/30/20 Range/Units 18:40 18:40 22:30 WBC 13.78 H (4.8-10.8) K/uL RBC 4.88 (4.7-6.1) M/uL Hgb 14.6 (14.0-18.0) g/dL Hct 43.9 (42-52) % MCV 90.0 (80-100) fL MCH 29.9 (25-34) pg MCHC 33.3 (32-36) g/dL RDW Std Deviation 45.7 (36.4-46.3) fL RDW Coeff of Gi 13.9 (11.5-14.5) % Plt Count 389 (130-400) K/uL MPV 9.1 (7.4-10.4) fL Immature Gran % (Auto) 0.5 % Neut % (Auto) 69.8 % Lymph % (Auto) 22.0 % [place] % (Auto) 5.7 % Eos % (Auto) 1.9 % Baso % (Auto) 0.1 % Neut # (Auto) 9.62 H (1.4-6.5) K/uL Lymph # (Auto) 3.03 (1.2-3.4) K/uL [place] # (Auto) 0.78 H (0.11-0.59) K/uL Eos # (Auto) 0.26 (0-0.5) K/uL Baso # (Auto) 0.02 (0-0.2) K/uL Immature Gran # (Auto) 0.07 H (0.00-0.02) K/uL Sodium 140 (136-145) mmol/L Potassium 4.3 (3.5-5.1) mmol/L Chloride 111 H (98-107) mmol/L Carbon Dioxide 23 (21-32) mmol/L Anion Gap 7.0 (3-11) BUN 58 H (7-18) mg/dl Creatinine 1.90 H (0.6-1.4) mg/dl Est Cr Clr Drug Dosing 37.1 ml/min Est GFR ( Amer) 38.8 Est GFR (Non-Af Amer) 33.5 BUN/Creatinine Ratio 30.7 H (10-20) Glucose 127 H (70-99) mg/dl Calcium 10.1 (8.5-10.1) mg/dl Total Bilirubin 0.3 (0.2-1) mg/dl AST 12 L (15-37) U/L ALT 16 (12-78) U/L Alkaline Phosphatase 71 (45-117) U/L Total Protein 7.5 (6.4-8.2) gm/dl Albumin 3.3 L (3.4-5.0) gm/dl Globulin 4.2 H (2.5-4.0) gm/dl Albumin/Globulin Ratio 0.8 L (0.9-2) COVID-19 [facility] Findings CERVICAL SPINE MRI HISTORY: fall, C5 injury suspected on CT TECHNIQUE: Multiplanar multisequence MRI of the cervical spine was performed without the use of contrast. COMPARISON STUDY: Cervical spine CT 05/30/2020. FINDINGS: Straightening of cervical spine. Moderate disc space narrowing at C5- C6. There is edema both within and surrounding the C5 spinous process. Therefore, the CT finding would be consistent with an acute nondisplaced fracture at the spinous process. There is also a full-thickness tear through the anterior longitudinal ligament at C6-C7. This is consistent with acute injury. There is fluid/fracture through the C6-C7 disc space with prevertebral edema from C6 through T1. There appears to be a possible tear through the posterior longitudinal ligament at the C5-C6 level. Therefore, these findings are consistent with an unstable cervical spine injury. There is also mild marrow edema within the left C6 facet which could also represent an occult injury. No additional fractures within the cervical spine. The C1-C2 interval is intact. The visualized posterior fossa is unremarkable. Cervical spinal cord demonstrates a normal signal intensity. There is trace fluid posterior to the C6 vertebral body measuring 1 mm in thickness. This could represent a tiny epidural hematoma versus edema secondary to the torn posterior longitudinal ligament. C2-C3: No significant central canal or neural foraminal narrowing. C3-C4: No significant central canal narrowing. There is moderate to severe left and mild right neural foraminal narrowing due to the uncovertebral hypertrophy. C4-C5: No significant central canal or neural foraminal narrowing. C5-C6: Broad-based posterior disc osteophyte complex which abuts and slightly deforms anterior cord consistent with mild central canal and mild bilateral neural foraminal narrowing. C6-C7: Small broad-based posterior disc osteophyte complex without significant central canal or neural foraminal narrowing. C7-T1: No significant central canal or neural foraminal narrowing. IMPRESSION: 1. Edema both within and surrounding the C5 spinous process which would confirm the CT finding of an acute nondisplaced fracture at this location. 2. Full-thickness tear through the anterior longitudinal ligament at C6-C7 with fluid/fracture extending through the C6-C7 disc space. There is also suggestion of a small tear through the posterior longitudinal ligament at C5-C6. In conjunction with the C5-6 spinous process fracture, this is consistent with an unstable cervical spine injury. 3. Prevertebral edema from C6 through T1 due to the acute injury. 4. Trace fluid posterior to the C6 vertebral body measuring 1 mm in thickness. This could represent a tiny epidural hematoma versus edema secondary to the torn posterior longitudinal ligament. ACT 112: Negative or not required by law. Electronically signed by: Alvarado Bernal M.D. 05/30/2020 9:05 PM Dictated: 05/30/202050Transcribed: 05/30/[address]50 HEAD CT NONCONTRAST CT DOSE: HISTORY: fall TECHNIQUE: Multiaxial CT images of the head were performed without the use of intravenous contrast. Automated exposure control was utilized for this study. A dose lowering technique was utilized adhering to the principles of ALARA. Comparison: None. Findings: Trace fluid within the right maxillary sinus. The mastoid air cells are clear. Right frontal scalp swelling with a small laceration. The calvarium and skull base are intact. The ventricles and sulci are within normal limits. There is no mass, hematoma, midline shift, or acute infarct. Impression: No acute intracranial abnormality. Right frontal scalp injury. ACT 112: Negative or not required by law. Electronically signed by: Alvarado Bernal M.D. 05/30/2020 7:29 PM Dictated: 05/30/201924Transcribed: 05/30/[address] DOSE: 1089.15 mGy.cm HISTORY: fall TECHNIQUE: Multiaxial CT images of the maxillofacial region were performed and reformatted in the coronal plane without the use of contrast. A dose lowering technique was utilized adhering to the principles of ALARA. COMPARISON: None. FINDINGS: Right orbital floor fracture demonstrating herniation of a small amount of intraorbital fat through the 5 mm defect along the medial aspect of the orbital floor. There is mild thickening of the right inferior rectus muscle. There is trace extraconal hemorrhage. The orbital floor fracture is depressed up to 4 mm. There is also nondisplaced fracture within the medial wall the right orbit. Right periorbital soft tissue swelling with a small laceration. Deformity within the nasal bones likely represent old, healed fractures. Trace fluid within the right maxillary sinus which likely represents hemorrhage. The skull base, pterygoid plates, mandible, zygomatic arches, and left orbit are intact. There is mild left nasal septal deviation. The globes and retrobulbar fat are intact. IMPRESSION: 1. Right orbital floor fracture which is mildly displaced and demonstrates a small amount of intraorbital fat herniating through a 5 mm defect. The right inferior rectus muscle slightly thickened but does not extend to the defect. Clinical correlation recommended to exclude the less likely possibility of e ntrapment. 2. Nondisplaced fracture within the medial wall of the right orbit. ACT 112: Negative or not required by law. Electronically signed by: Alvarado Bernal M.D. 05/30/2020 7:47 PM Dictated: 05/30/201933Transcribed: 05/30/[address] DOSE: HISTORY: fall TECHNIQUE: Multiaxial CT images of the cervical spine were performed and reformatted in the sagittal and coronal plane without the use of contrast. A dose lowering technique was utilized adhering to the principles of ALARA. COMPARISON: None. FINDINGS: The C4-C5 posterior elements are fused. No subluxation. Moderate disc space narrowing at C5-C6. Prevertebral soft tissues and the C1-C2 interval are intact. No pneumothorax. Small lucency at the spinous process of C5. There is no surrounding edema. Therefore, this favors a vascular channel. A small nondisplaced fracture cannot be excluded. Otherwise, no fractures identified within the cervical spine. IMPRESSION: Small lucency at the spinous process of C5 without surrounding edema. Therefore, this favors a vascular channel. A small nondisplaced fracture cannot be excluded. ACT 112: Negative or not required by law. Electronically signed by: Alvarado Bernal M.D. 05/30/2020 7:34 PM Dictated: 05/30/201928Transcribed: 05/30/201928 Code Status & VTE Plan VTE Prophylaxis Plan VTE Prophylaxis will be ordered: Yes PG Care Time/CCT Total # of Minutes Spent Total Time Spent with Patient: Total time spent is greater than 50% in coordination of care (as documented) at patient's floor/unit and/or counseling patient: Coding Level of Care Code 97132 Initial Inpt Care Lvl 3 Diagnoses Ligament tear T14.8XXA Cervical spine fracture S12.9XXA Encounter type: initial encounter Cervical vertebra fracture level: unspecified cervical vertebra Fracture type: closed Orbital fracture S02.85XA Encounter type: initial encounter Fracture type: closed Forehead laceration S01.81XA Encounter type: initial encounter Hypertension I10 Hypertension type: essential hypertension BPH (benign prostatic hyperplasia) N40.0 Lower urinary tract symptom presence: symptoms absent (1) Hypertension Hypertension type: essential hypertension Qualified Code(s): I10 - Essential (primary) hypertension (2) BPH (benign prostatic hyperplasia) Lower urinary tract symptom presence: symptoms absent Qualified Code(s): N40.0 - Benign prostatic hyperplasia without lower urinary tract symptoms (3) Forehead laceration Encounter type: initial encounter Qualified Code(s): S01.81XA - Laceration without foreign body of other part of head, initial encounter (4) Cervical spine fracture Encounter type: initial encounter Cervical vertebra fracture level: unspecified cervical vertebra Fracture type: closed Qualified Code(s): S12.9XXA - Fracture of neck, unspecified, initial encounter (5) Orbital fracture Encounter type: initial encounter Fracture type: closed Qualified Code(s): S02.85XA - Fracture of orbit, unspecified, initial encounter for closed fracture
[2020-05-30] MEDS ORDERED: ACETAMINOPHEN 325 MG TAB ONE (23:01)
[2020-05-30] MEDS ORDERED: LIDOCAINE 5% 1 PATCH TD ONE (23:01)
[2020-05-30 23:38] LABS: Albumin Level 3.5 gm/dl (3.4-5.0); BUN Creatinine Ratio 33.7 (10-20); Bilirubin Direct 0.1 mg/dl (0-0.2); Creatinine Clr Calc Pharmacy 43.3 ml/min; Est GFR (African American) 46.7; Est GFR (Non-African American) 40.3; Magnesium 2.6 mg/dl (1.8-2.4); Potassium 4.5 mmol/L (3.5-5.1)
[2020-05-30] MEDS ORDERED: OPTIRAY 320 125ml IV ONE (23:40)
[2020-05-30 23:41] LABS: Bilirubin,Total 0.4 mg/dl (0.2-1); Total Protein 7.7 gm/dl (6.4-8.2)
[2020-05-31] MEDS ORDERED: ONDANSETRON INJ 2 MG/ML 2 ML VIAL IV STA (00:03)
[2020-05-31] MEDS ORDERED: ACETAMINOPHEN 325 MG TAB PO STA (00:03)
[2020-05-31] MEDS ORDERED: ONDANSETRON INJ 2 MG/ML 2 ML VIAL ONE ×3 (00:19→13:46)
[2020-05-31] MEDS ORDERED: oxyCODONE HCL IR 5 MG TAB (IMMEDIATE RELEASE) PO STA (00:36)
[2020-05-31] MEDS ORDERED: oxyCODONE HCL IR 5 MG TAB (IMMEDIATE RELEASE) PO PRN (01:28)
[2020-05-31] MEDS ORDERED: ACETAMINOPHEN 325 MG TAB PO PRN (01:28)
[2020-05-31] MEDS ORDERED: DOCUSATE SODIUM 100 MG CAP PO PRN (01:28)
[2020-05-31] MEDS: LACTATED RINGER'S 1,000 ML IV SCH ×3 (02:16→16:41)
[2020-05-31] MEDS: CLINDAMYCIN 900 MG in DEXTROSE 5% 50 ML IV SCH ×3 (02:16→18:03)
[2020-05-31] MEDS: ONDANSETRON INJ 2 MG/ML 2 ML VIAL IV PRN ×2 (03:28→08:24)
[2020-05-31 06:56] LABS: Basophils # (auto) 0.01 K/uL (0-0.2); Basophils % (auto) 0.1 %; Hematocrit (blood only) 42.7 % (42-52); Hemoglobin 14.1 g/dL (14.0-18.0); Immature Granulocytes # (auto) 0.05 K/uL (0.00-0.02); Immature Granulocytes % (auto) 0.3 %; Lymphocytes # (auto) 1.36 K/uL (1.2-3.4); Lymphocytes % (auto) 9.3 %; Mean Corpuscular Hemoglobin 29.7 pg (25-34); Mean Corpuscular Volume 90.1 fL (80-100); Mean Platelet Volume 8.8 fL (7.4-10.4); Monocytes # (auto) 0.75 K/uL (0.11-0.59); Monocytes % (auto) 5.1 %; Neutrophils # (auto) 12.52 K/uL (1.4-6.5); Neutrophils % (auto) 85.2 %; Platelet Count 327 K/uL (130-400); RDW Coefficient of Variation 13.8 % (11.5-14.5); RDW Standard Deviation 45.9 fL (36.4-46.3); Red Blood Count 4.74 M/uL (4.7-6.1); White Blood Count 14.69 K/uL (4.8-10.8)
[2020-05-31 07:04] LABS: Prothrombin Time 10.5 Seconds (9.0-12.0)
[2020-05-31 07:28] LABS: BUN Creatinine Ratio 31.6 (10-20); Calcium 9.7 mg/dl (8.5-10.1); Creatinine Clr Calc Pharmacy 46.6 ml/min; Est GFR (African American) 50.1; Est GFR (Non-African American) 43.2; Potassium 4.7 mmol/L (3.5-5.1)
--- NOTE | 2020-05-31 07:32 | Orthopedic Consultation ---
Date of Consultation May 31, 2020 Assessment & Plan (1) Injury to ligament of cervical spine: Patient has suffered an extension distraction injury of the cervical spine affecting the C6-7 and C5-6 levels. He demonstrates complete tears across the anterior and posterior longitudinal ligament as well as posterior element fracture. I am recommending an urgent anterior cervical discectomy and fusion at C5-6 C6-7 to address this instability and prevent any neurologic deterioration. I reviewed this in detail with the patient. Risk benefits pros cons alternatives outlined. We will try to surgery range performed as soon as possible. Present on Admission?: Yes History of Present Illness Reason for Consultation: Cervical spine fracture Attending Physician: Paradise Martin, DO History of Present Illness This is a very pleasant 75-year-old male that presents the emergency room late last evening. He did unfortunately fall at home struck his forehead against a table sustaining laceration and orbital fracture. But also upon his work-up determined to have an unstable cervical spine fracture. Today he describes some cervicalgia with radiation to the right trapezius musculature. He denies any numbness and tingling in the arms. His pain is well controlled. Denies any numbness or tingling in the lower extremities. Allergies Allergy/AdvReac Type Severity Reaction Status Date / Time Penicillins Allergy Unknown Unknown Verified 05/30/20 20:23 Sulfa (Sulfonamide Allergy Unknown Unknown Verified 05/30/20 20:23 Antibiotics) Home Medications Medication Instructions Recorded Confirmed Type finasteride 5 mg PO DAILY 05/05/19 05/30/20 History hydrochlorothiazide 25 mg PO DAILY 05/05/19 05/30/20 History metoprolol tartrate 50 mg PO BID 05/05/19 05/30/20 History glucos sul 5HWz-zxq-ahhkk-C-Mn 2 cap PO BID 05/30/20 05/30/20 History [Glucosamine Chondroitin] lisinopril 40 mg PO DAILY 05/30/20 05/30/20 History multivitamin [Multiple Vitamin] 1 tab PO DAILY 05/30/20 05/30/20 History vitamin G79-dgpgx acid 1 tab PO DAILY 05/30/20 05/30/20 History Patient History Medical History (Updated 05/31/20 @ 03:14 by Mihai Barahona MD) BPH (benign prostatic hyperplasia) Hypertension Surgical History (Updated 05/30/20 @ 22:57 by Missy Callaway DO) History of cholecystectomy History of hernia repair Family History (Updated 05/30/20 @ 22:57 by Missy Callaway DO) Other Family history non-contributory Social History (Updated 05/30/20 @ 22:57 by Missy Callaway DO) Smoking Status: Never smoker Second Hand Exposure: No; Hx Alcohol Use: Yes Alcohol type: beer, wine and hard liquor Hx Substance Use: No Preferred Language: Vietnamese Communication Ability: Effective Litigation Support Analyst Required: No Beliefs That Will Affect Care: None marital status: Current Living Situation: Spouse Feels Safe at Home: Yes Assistive Devices: Glasses Physical Exam Physical Exam: On exam the [employer] J collar is in place and fitting appropriately. He exhibits excellent strength detailed testing bilateral upper extremities. Sensory symmetric and intact to cold and light touch. He has full strength in lower extremities. Results & Data ([facility]) Vital Signs (Past 12 Hours) Vital Signs Temp Pulse Pulse Resp BP BP Pulse Ox 05/31/20 01:20 36.8 C 82 18 157/87 H 97 05/31/20 00:48 18 106/67 92 05/31/20 00:00 18 104/68 94 05/30/20 22:35 20 119/70 94 05/30/20 22:30 18 106/71 93 05/30/20 22:25 18 127/64 95 05/30/20 22:21 20 106/82 94 05/30/20 22:15 117/83 95 05/30/20 22:10 137/82 96 05/30/20 22:05 106/82 95 05/30/20 22:00 125/73 94 05/30/20 21:55 119/68 95 05/30/20 21:50 124/70 95 05/30/20 21:45 130/79 96 05/30/20 21:40 121/83 96 05/30/20 21:35 18 135/69 96 05/30/20 21:30 20 113/65 96 05/30/20 20:05 81 12 132/72 100
[2020-05-31] MEDS: FINASTERIDE 5 MG TAB PO SCH (07:37)
[2020-05-31] MEDS: METOPROLOL TARTRATE 50 MG TAB PO SCH ×2 (07:37→21:06)
--- NOTE | 2020-05-31 07:45 | CT Scan Report ---
CT ANGIOGRAM OF THE NECK CLINICAL HISTORY: Fall. Neck injury. COMPARISON STUDY: CT of the cervical spine performed earlier the same day 05/30/2020. TECHNIQUE: Following the IV administration of 118 of Optiray 320, CT angiogram of the neck was perfor med from the aortic arch to the skull base. Images are reviewed in the axial, sagittal, and coronal p lanes. 3-D MIPS images are created and assessed. IV contrast was administered without complication. A ll measurements were calculated based on NASCET criteria. A dose lowering technique was utilized adh ering to the principles of ALARA. CT DOSE: 643.41 mGy.cm FINDINGS: Thoracic aorta: There is atherosclerotic calcification of the thoracic aorta. Visualized portions of the thoracic aorta are normal in caliber. The aortic arch demonstrates bovine variant anatomy. Right carotid arterial system: The right common carotid artery is widely patent, as are the right int ernal and carotid arteries. There is tortuosity of the distal internal carotid artery. Minimal plaque is noted in the carotid bulb. Left carotid arterial system: The left common carotid artery is widely patent, as are the left international specialist al and external carotid arteries. Vertebral arteries: The vertebral arteries are patent bilaterally and codominant. There is no evidenc e of dissection. Subclavian arteries: Widely patent bilaterally. Intracranial vasculature: The visualized intracranial vessels at the skull base are patent. Jugular veins: Widely patent bilaterally. Brain parenchyma: The visualized brain parenchyma the skull base is within normal limits. Lung apices: Partially visualized upper lobe lung parenchyma appears clear. Soft tissues: The visualized pharyngeal soft tissues are normal in appearance noting angiographic pha se technique. The oropharyngeal airway appears widely patent. The salivary and thyroid glands are nor mal in appearance. No cervical lymphadenopathy is seen. Skeletal structures: The skeletal structures are osteopenic. The visualized calvarium at the skull ba se appears intact. The imaged cervical spine appears maintained noting multilevel spondylosis. No lyt ic or blastic lesion is seen.. Sinuses and mastoids: Mild mucosal thickening is noted within the ethmoid sinuses. There is trace flu id within the right maxillary antrum. The mastoid air cells are well pneumatized. There are chronic/h ealed right orbital floor fractures. IMPRESSION: Unremarkable CT angiogram of the neck. ACT 112: Negative or not required by law. Electronically signed by: Jaspreet Sparks M.D. 05/31/2020 7:44 AM
[2020-05-31] MEDS: LIDOCAINE 5% 1 PATCH TD SCH (08:27)
[2020-05-31] MEDS ORDERED: LIDOCAINE 5% 1 PATCH TD SCH (09:00)
[2020-05-31] MEDS ORDERED: MoRPHine SULFATE 2 MG/ML CARP IV PRN (09:54)
[2020-05-31] MEDS ORDERED: ATROPINE SULFATE 0.1 MG/ML 10ML SYR IV PRN (10:56)
[2020-05-31] MEDS ORDERED: ePHEDrine sulfate 50 MG/ML AMP IV PRN (10:56)
[2020-05-31] MEDS ORDERED: fentaNYL citrate 100 MCG/2 ML VIAL IV PRN (10:56)
[2020-05-31] MEDS ORDERED: HYDROmorphone INJ 1 MG/ML SYRINGE IV PRN ×2 (10:56→15:51)
[2020-05-31] MEDS ORDERED: MEPERIDINE HCL 25 MG/ML CARP/VIAL IV PRN (10:56)
[2020-05-31] MEDS ORDERED: ONDANSETRON INJ 2 MG/ML 2 ML VIAL IV PRN ×2 (10:56→15:51)
[2020-05-31] MEDS ORDERED: LABETALOL HCL IV 5 MG/ML 20ML IV PRN (10:56)
[2020-05-31] MEDS ORDERED: PHENYLEPHRINE 100MCG/ML 5ML SYR IV PRN (10:56)
--- NOTE | 2020-05-31 11:01 | Anesthesiology Consultation ---
Date of Service May 31, 2020 Covid 19 negative on 05/30/20. On 05/30/20 the patient had a mechanical fall resulting in a C5/6 vertebrate fracture. He also has facial trauma. He is neurologically intact and his head CT was negative for acute injury. Assessment & Plan (1) Encounter for pre-operative examination: Chart Review Chart Review: Acceptable Risk for Surgery and Patient NOT seen in Pre Admission Testing Consults Requested none History Surgery Operation Date: 05/31/20 12:25 Proposed Procedures p C5-C6, C6-C7 Anterior Cervical Discectomy and Fusion - Miguel Angel Sow DO Height/Weight Height: 5 ft 8 in Weight: 99.3 kg Allergies Allergy/AdvReac Type Severity Reaction Status Date / Time Penicillins Allergy Unknown Unknown Verified 05/30/20 20:23 Sulfa (Sulfonamide Allergy Unknown Unknown Verified 05/30/20 20:23 Antibiotics) Medications Home Medications Medication Instructions Recorded Confirmed Last Taken finasteride 5 mg PO DAILY 05/05/19 05/30/20 Unknown hydrochlorothiazide 25 mg PO DAILY 05/05/19 05/30/20 Unknown metoprolol tartrate 50 mg PO BID 05/05/19 05/30/20 Unknown glucos sul [id number] 2 cap PO BID 05/30/20 05/30/20 Unknown [Glucosamine Chondroitin] lisinopril 40 mg PO DAILY 05/30/20 05/30/20 Unknown multivitamin [Multiple Vitamin] 1 tab PO DAILY 05/30/20 05/30/20 Unknown vitamin [id number] acid 1 tab PO DAILY 05/30/20 05/30/20 Unknown Active Medications Generic Name Dose Route Start Last Admin Trade Name Richie PRN Reason Stop Dose Admin Finasteride 5 mg 05/31/20 09:00 05/31/20 07:37 Finasteride 5 Mg Tab PO 06/30/20 08:59 Not Given DAILY ANA PAULA Lactated Ringer's 1,000 mls @ 125 mls/hr 05/31/20 01:28 05/31/20 10:48 Lr IV 05/31/20 17:27 125 mls/hr .Q8H ANA PAULA Administration Clindamycin Phosphate 900 mg/ 56 mls @ 112 mls/hr 05/31/20 02:00 05/31/20 09:45 Dextrose IV 06/10/20 01:59 Infused Q8H ANA PAULA Infusion Lidocaine 1 patch 05/31/20 09:00 05/31/20 08:27 Lidocaine 5% 1 Patch TD 06/30/20 08:59 1 patch QAM ANA PAULA Administration Metoprolol Tartrate 50 mg 05/31/20 09:00 05/31/20 07:37 Metoprolol Tartrate 50 Mg Tab PO 06/30/20 08:59 Not Given BID ANA PAULA Morphine Sulfate 0.5 mg 05/31/20 09:54 05/31/20 10:44 Morphine Sulfate 2 Mg/Ml Carp IV 06/14/20 09:53 0.5 mg Q4H PRN Administration Pain Ondansetron HCl 4 mg 05/31/20 01:28 05/31/20 08:24 Ondansetron Inj 2 Mg/Ml 2 Ml Vial IV 06/30/20 01:27 4 mg Q6H PRN Administration Nausea And Vomiting Past Medical History Medical History BPH (benign prostatic hyperplasia) Hypertension Past Family History Family History Other Family history non-contributory Past Surgical History Surgical History History of cholecystectomy History of hernia repair Social History Smoking Status: Never smoker Do You Dip or Chew Tobacco: No Hx Alcohol Use: Yes Alcohol type: beer, wine and hard liquor alcohol intake frequency: a few times a month Hx Substance Use: No substance use type: does not use Physical Exam Vital Signs Last Vital Signs Temp 36.6 C 05/31/20 07:35 Pulse 89 05/31/20 07:35 Resp 20 05/31/20 07:35 BP 136/76 05/31/20 07:35 Pulse Ox 97 05/31/20 07:35 Testing Laboratory Results 05/31/20 06:36 05/31/20 06:36 PT 10.5 Seconds (9.0-12.0) 05/31/20 06:36 INR 1.0 (0.9-1.1) 05/31/20 06:36 Electrocardiogram Date: 05/31/20 Findings: + NSR @ (83) Cervical Spine Date: 05/30/20 CERVICAL SPINE MRI HISTORY: fall, C5 injury suspected on CT TECHNIQUE: Multiplanar multisequence MRI of the cervical spine was performed without the use of contrast. COMPARISON STUDY: Cervical spine CT 05/30/2020. FINDINGS: Straightening of cervical spine. Moderate disc space narrowing at C5- C6. There is edema both within and surrounding the C5 spinous process. Therefore, the CT finding would be consistent with an acute nondisplaced fracture at the spinous process. There is also a full-thickness tear through the anterior longitudinal ligament at C6-C7. This is consistent with acute injury. There is fluid/fracture through the C6-C7 disc space with prevertebral edema from C6 through T1. There appears to be a possible tear through the posterior longitudinal ligament at the C5-C6 level. Therefore, these findings are consistent with an unstable cervical spine injury. There is also mild marrow edema within the left C6 facet which could also represent an occult injury. No additional fractures within the cervical spine. The C1-C2 interval is intact. Th e visualized posterior fossa is unremarkable. Cervical spinal cord demonstrates a normal signal intensity. There is trace fluid posterior to the C6 vertebral body measuring 1 mm in thickness. This could represent a tiny epidural hematoma versus edema secondary to the torn posterior longitudinal ligament. C2-C3: No significant central canal or neural foraminal narrowing. C3-C4: No significant central canal narrowing. There is moderate to severe left and mild right neural foraminal narrowing due to the uncovertebral hypertrophy. C4-C5: No significant central canal or neural foraminal narrowing. C5-C6: Broad-based posterior disc osteophyte complex which abuts and slightly deforms anterior cord consistent with mild central canal and mild bilateral neural foraminal narrowing. C6-C7: Small broad-based posterior disc osteophyte complex without significant central canal or neural foraminal narrowing. C7-T1: No significant central canal or neural foraminal narrowing. IMPRESSION: 1. Edema both within and surrounding the C5 spinous process which would confirm the CT finding of an acute nondisplaced fracture at this location. 2. Full-thickness tear through the anterior longitudinal ligament at C6-C7 with fluid/fracture extending through the C6-C7 disc space. There is also suggestion of a small tear through the posterior longitudinal ligament at C5-C6. In conjunction with the C5-6 spinous process fracture, this is consistent with an unstable cervical spine injury. 3. Prevertebral edema from C6 through T1 due to the acute injury. 4. Trace fluid posterior to the C6 vertebral body measuring 1 mm in thickness. This could represent a tiny epidural hematoma versus edema secondary to the torn posterior longitudinal ligament. ACT 112: Negative or not required by law. Electronically signed by: Alvarado Bernal M.D. 05/30/2020 9:05 PM Dictated: 05/30/202050Transcribed: 05/30/202050 Other Testing CT ANGIOGRAM OF THE NECK CLINICAL HISTORY: Fall. Neck injury. COMPARISON STUDY: CT of the cervical spine performed earlier the same day 05/30/2020. TECHNIQUE: Following the IV administration of 118 of Optiray 320, CT angiogram of the neck was performed from the aortic arch to the skull base. Images are reviewed in the axial, sagittal, and coronal planes. 3-D MIPS images are created and assessed. IV contrast was administered without complication. All measurements were calculated based on NASCET criteria. A dose lowering technique was utilized adhering to the principles of ALARA. CT DOSE: 643.41 mGy.cm FINDINGS: Thoracic aorta: There is atherosclerotic calcification of the thoracic aorta. Visualized portions of the thoracic aorta are normal in caliber. The aortic arch demonstrates bovine variant anatomy. Right carotid arterial system: The right common carotid artery is widely patent, as are the right internal and carotid arteries. There is tortuosity of the distal internal carotid artery. Minimal plaque is noted in the carotid bulb. Left carotid arterial system: The left common carotid artery is widely patent, as are the left internal and external carotid arteries. Vertebral arteries: The vertebral arteries are patent bilaterally and codominant. There is no evidence of dissection. Subclavian arteries: Widely patent bilaterally. Intracranial vasculature: The visualized intracranial vessels at the skull base are patent. Jugular veins: Widely patent bilaterally. Brain parenchyma: The visualized brain parenchyma the skull base is within normal limits. Lung apices: Partially visualized upper lobe lung parenchyma appears clear. Soft tissues: The visualized pharyngeal soft tissues are normal in appearance noting angiographic phase technique. The oropharyngeal airway appears widely patent. The salivary and thyroid glands are normal in appearance. No cervical lymphadenopathy is seen. Skeletal structures: The skeletal structures are osteopenic. The visualized calvarium at the skull base appears intact. The imaged cervical spine appears maintained noting multilevel spondylosis. No lytic or blastic lesion is seen.. Sinuses and mastoids: Mild mucosal thickening is noted within the ethmoid sinuses. There is trace fluid within the right maxillary antrum. The mastoid air cells are well pneumatized. There are chronic/healed right orbital floor fractures. IMPRESSION: Unremarkable CT angiogram of the neck. ACT 112: Negative or not required by law. Electronically signed by: Jaspreet Sparks M.D. 05/31/2020 7:[address]AST CT DOSE: HISTORY: fall TECHNIQUE: Multiaxial CT images of the head were performed without the use of intravenous contrast. Automated exposure control was utilized for this study. A dose lowering technique was utilized adhering to the principles of ALARA. Comparison: None. Findings: Trace fluid within the right maxillary sinus. The mastoid air cells are clear. Right frontal scalp swelling with a small laceration. The calvarium a nd skull base are intact. The ventricles and sulci are within normal limits. There is no mass, hematoma, midline shift, or acute infarct. Impression: No acute intracranial abnormality. Right frontal scalp injury. ACT 112: Negative or not required by law. Electronically signed by: Alvarado Bernal M.D. 05/30/2020 7:29 PM Dictated: 05/30/201924Transcribed: 05/30/201924 Dictated: 05/31/20 0739Transcribed: 05/31/20 0739
[2020-05-31] MEDS ORDERED: BACITRACIN INJ 50,000 UNIT VIAL ONE (12:09)
[2020-05-31] MEDS ORDERED: SCOPOLAMINE 1 MG TDSY TD ONE (12:12)
[2020-05-31] MEDS ORDERED: fentaNYL citrate 100 MCG/2 ML VIAL ONE (12:12)
[2020-05-31] MEDS ORDERED: PHENYLEPHRINE 100MCG/ML 5ML SYR ONE (12:48)
--- NOTE | 2020-05-31 13:00 | Hospitalist Progress Note ---
Date of Service May 31, 2020 Assessment & Plan (1) Ligament tear: 75yo male s/p mechanical fall resulting in head trauma, extension injury to cervical spine found with full-thickness tear through the anterior longitudinal ligament at C6-C7 with fluid/fracture. Possible small tear through the posterior longitudinal ligament at C5-C6. C5-C6 spinous process fracture. Patient with prevertebral edema from C6-T1. Patient doing well. He is neurologically intact. Pain is well controlled. Case was discussed with Orthopedics - possible OR in AM. -Admit to medical floor -Maintain cervical collar -Neuro checks q 4 hours -Orthopedics planning OR 05/31 for C5-6, C6-7 fusion -Pain control with Lidoderm patch, Tylenol and Oxycodone PRN -Check CTA neck to rule out possible vascular dissection given mechanism/severity of head trauma Patient with well controlled hypertension. He has no known CAD, no history of arrhythmia, CHF or other cardiac conditions. No history of pulmonary disease. He is active and independent. Able to complete 4 METS of activity without difficulty. No history of adverse reaction to anesthesia. Per RSRI criteria, patient is medically optimized to proceed to surgery with no additional testing. -Check PT/INR (2) Cervical spine fracture: As above. S/p mechanical fall -Check CTA head -Maintain cervical collar -Ortho consultation appreciated (3) Orbital fracture: No visual disturbance or entrapment -Continue to monitor -Awaiting Dr. Troncoso c/s (4) Forehead laceration: s/p repair -wound management -pain control as needed (5) Hypertension: Blood pressure stable at present -Hold Lisinopril and HCTZ -Continue metoprolol -Continue to monitor (6) BPH (benign prostatic hyperplasia): Chronic -Continue Finasteride F/E/N - LR at 125mL/hr x 2 liters, monitor renal function and electrolytes, NPO for possible OR in AM Ppx - SCDs Code - Full per discussion with patient Dispo - Admit to medical floor Admission and Anticipated Discharge Date Admission Date: May 30, 2020 Review of Systems Review of Systems: Pertinent positives and negatives reviewed in HPI--all others negative Physical Exam Constitutional: WD/WN, vitals as above Eyes: normal visual vides by confrontation and + anicteric sclerae ENMT: R sided facial swelling around the orbit, bandaging clean and dry, lac erations noted Neck: collar in place Respiratory: normal respiratory effort, lungs clear to auscultation Cardiovascular: Rate/Rhythm: regular rate and regular rhythm Gastrointestinal (Abdomen): Inspection/Auscultation: abdomen not distended Percussion/Palpation: abdomen soft; abdomen nontender Musculoskeletal: Head/Neck/Chest: normocephalic and head atraumatic negative for edema, peripheral pulses intact Skin: no rashes, warm and dry Neurologic: awake; not confused Speech / Cognition: normal speech Psychiatric: A+Ox3, euthymic affect Results & Data Results & Data ([facility]) Vital Signs (Past 12 Hours) Vital Signs Temp Pulse Resp BP Pulse Ox 05/31/20 11:22 36.8 C 85 20 135/76 98 05/31/20 07:35 36.6 C 89 20 136/76 97 05/31/20 01:20 36.8 C 82 18 157/87 H 97 PG Care Time/CCT Total # of Minutes Spent Total Time Spent with Patient: Total time spent is greater than 50% in coordination of care (as documented) at patient's floor/unit and/or counseling patient: Coding Level of Care Code 64576 Subseq Hosp Care Lvl 3 Diagnoses Ligament tear T14.8XXA Cervical spine fracture S12.9XXA Orbital fracture S02.85XA Encounter type: initial encounter Fracture type: closed Forehead laceration S01.81XA Encounter type: initial encounter Hypertension I10 Hypertension type: essential hypertension BPH (benign prostatic hyperplasia) N40.0 Lower urinary tract symptom presence: symptoms absent (1) Orbital fracture Encounter type: initial encounter Fracture type: closed Qualified Code(s): S02.85XA - Fracture of orbit, unspecified, initial encounter for closed fracture (2) Forehead laceration Encounter type: initial encounter Qualified Code(s): S01.81XA - Laceration without foreign body of other part of head, initial encounter (3) Hypertension Hypertension type: essential hypertension Qualified Code(s): I10 - Essential (primary) hypertension (4) BPH (benign prostatic hyperplasia) Lower urinary tract symptom presence: symptoms absent Qualified Code(s): N40.0 - Benign prostatic hyperplasia without lower urinary tract symptoms
[2020-05-31] MEDS ORDERED: PROPOFOL IV EMULSION 10 MG/ML 20 ML VIAL IV ONE (13:07)
[2020-05-31] MEDS ORDERED: LIDOCAINE 2% 2 ML VIAL/AMP(20MG/ML) INFIL ONE (13:07)
[2020-05-31] MEDS ORDERED: DEXAMETHASONE SOD INJ 4 MG/ML VIAL ONE (13:07)
[2020-05-31] MEDS ORDERED: SUCCINYLCHOLINE CHLORIDE 20 MG/ML 10 ML VIAL IV ONE (13:07)
[2020-05-31] MEDS ORDERED: ROCURONIUM BROMIDE 10 MG/ML 5 ML VIAL IV ONE (13:07)
[2020-05-31] MEDS ORDERED: PHENYLEPHRINE HCL 10 MG/ML VIAL ONE (13:24)
[2020-05-31] MEDS ORDERED: FLOSEAL HEMOSTATIC MATRIX 10ML TOP ONE (13:31)
[2020-05-31] MEDS ORDERED: NEOSTIGMINE METHYLSULFATE 1 MG/ML 10ML VIAL ONE (13:51)
[2020-05-31] MEDS ORDERED: GLYCOPYRROLATE 0.2 MG/ML VIAL ONE (13:51)
--- NOTE | 2020-05-31 14:01 | Operative Report ---
Post Operative Report Pre & Post Diagnosis Operation Date: 05/31/20 12:25 Pre-Op Diagnosis: Mechanical Fall, Cervical Fracture, Injury to Ligament of Cervical Spine Post-Op Diagnosis: Mechanical Fall, Cervical Fracture, Injury to Ligament of Cervical Spine I identified the patient and participated in the time-out.: Yes Procedure Operation Date: 05/31/20 12:25 Actual Procedures #1 anterior cervical discectomy with bilateral foraminotomies C5-6 and C6-7. #2 anterior cervical arthrodesis C5-6 and C6-7. #3 placement of Spira 7 mm cage filled with DBM C5-C6 and 9 mm cage filled with DBM at C6-C7. #4 application of christy plate and screws across C5-6 and C6-7. Surgeon Miguel Angel Sow, Asparagus Buncher Reva Alonso Estimated Blood Loss 20 Findings Consistent with Post-Op Diagnosis Specimens None Indications This is a 75-year-old male presents after fall at home last evening. He has an extension distraction ligamentous tear across the 66 with spinous process fractures C5 and is here for urgent surgical stabilization. Description of Procedure Patient was met with identified informed consent obtained. Patient was then taken to the operative suite underwent a patient placed in a supine position on the Carlos Eduardo table the head Comer head ordered. All bony prominences well- padded eyes inspected to ensure no external pressure placed upon the. This point the anterior cervical spine was prepped and draped in a sterile fashion. The assistance of fluoroscopy identified the C6 vertebral body and a transverse incision was placed on the right anterior aspect of the cervical spinal lines region. Sharp dissection with assistance of bipolar electrocautery was performe d down to and exposing the anterior cervical spine from C5-C7. Obvious anterior disruption of the ligament was noted at C6-C7 entire disc base was distracted and disrupted. I did curette out the remaining disc fragments performed bilateral foraminotomies burred the endplates to subcortical bleeding bone and placed a 9 mm Spira cage filled with DBM in the C6-C7 disc base. Then proceeded to C5-C6 a complete discectomy was performed out to the uncovertebral joints bilaterally. I did perform bilateral foraminotomies remove the posterior annular fibers longitudinal ligament. The endplates were then burred to subcortically bone and a 7 mm spiral cage filled with DBM tapped in position. All anterior osteophytes were burred to a smooth cortical surface and a 5 complete and screws applied with the assistance of fluoroscopy. The incision was then copiously irrigated explored to ensure no damage to surrounding structures remaining bleeding. 10 round VIOLETA drain inserted. The incision was th en closed with 2 Vicryl in the fashion of 4 Monocryl for final skin closure. Steri-Strip sterile dressings placed. Patient will continue PACU stable condition. Please note spinal cord monitoring was utilized throughout the procedure and no changes noted. Drea Alonso was present at the entire procedure involved in patient positioning complex portions of the surgery and final skin closure. I attest to the content of the Intraoperative Record and any orders documented therein. Any exceptions are noted below.
--- NOTE | 2020-05-31 14:26 | Fluoroscopy Report ---
INTRAOPERATIVE RADIOGRAPHS CLINICAL HISTORY: Spinal fusion. Fluoroscopy time: 12 seconds. FINDINGS: 3 spot fluoroscopic views of the cervical spine are presented. There is postoperative hoskins e from discectomy at C5-C6 and C6-C7 with anterior spinal fusion from C5-C7. The orthopedic hardware appears intact. An endotracheal tube is in place. IMPRESSION: Intraoperative images from C5-C7 spinal fusion. Electronically signed by: Jaspreet Sparks M.D. 05/31/2020 2:25 PM
--- NOTE | 2020-05-31 15:04 | Anesthesiology Progress Note ---
Date of Service May 31, 2020 Anesthesia Post Procedure Vital Signs Vital Signs: Temp Pulse Pulse Pulse Resp BP BP 05/31/20 14:55 72 14 96/54 L 05/31/20 14:45 75 14 105/61 05/31/20 14:35 84 16 104/64 05/31/20 14:25 74 16 107/51 L 05/31/20 14:15 85 16 119/72 05/31/20 14:08 36.3 C L 96 H 16 125/78 05/31/20 11:22 36.8 C 85 20 135/76 05/31/20 07:35 36.6 C 89 20 136/76 05/31/20 01:20 36.8 C 82 18 157/87 H 05/31/20 00:48 18 106/67 05/31/20 00:00 18 104/68 05/30/20 22:35 20 119/70 05/30/20 22:30 18 106/71 05/30/20 22:25 18 127/64 05/30/20 22:21 20 106/82 05/30/20 22:15 117/83 05/30/20 22:10 137/82 05/30/20 22:05 106/82 05/30/20 22:00 125/73 05/30/20 21:55 119/68 05/30/20 21:50 124/70 05/30/20 21:45 130/79 05/30/20 21:40 121/83 05/30/20 21:35 18 135/69 05/30/20 21:30 20 113/65 05/30/20 20:05 81 12 132/72 05/30/20 18:56 74 19 100/63 05/30/20 18:50 61 14 107/73 05/30/20 18:45 59 L 12 95/50 L 05/30/20 18:43 60 17 78/47 L 05/30/20 18:41 58 L 16 64/42 L 05/30/20 18:39 62 16 57/35 L 05/30/20 18:35 65 18 74/40 L 05/30/20 18:34 64 14 75/41 L 05/30/20 18:30 74 22 83/55 L 05/30/20 18:09 36.4 C L 72 18 104/63 05/30/20 18:06 71 16 104/63 Pulse Ox 05/31/20 14:55 96 05/31/20 14:45 97 05/31/20 14:35 97 05/31/20 14:25 100 05/31/20 14:15 100 05/31/20 14:08 98 05/31/20 11:22 98 05/31/20 07:35 97 05/31/20 01:20 97 05/31/20 00:48 92 05/31/20 00:00 94 05/30/20 22:35 94 05/30/20 22:30 93 05/30/20 22:25 95 05/30/20 22:21 94 05/30/20 22:15 95 05/30/20 22:10 96 05/30/20 22:05 95 05/30/20 22:00 94 05/30/20 21:55 95 05/30/20 21:50 95 05/30/20 21:45 96 05/30/20 21:40 96 05/30/20 21:35 96 05/30/20 21:30 96 05/30/20 20:05 100 05/30/20 18:56 95 05/30/20 18:50 95 05/30/20 18:45 94 05/30/20 18:43 93 05/30/20 18:41 93 05/30/20 18:39 98 05/30/20 18:35 95 05/30/20 18:34 95 05/30/20 18:30 93 05/30/20 18:09 94 05/30/20 18:06 97 Pain Intensity Head: Pain Intensity: 4 Transfer of Care Handoff Completed per policy Notes Mental Status: alert / awake / arousable Patient Amnestic to Procedure: Yes Nausea / Vomiting: adequately controlled Pain: adequately controlled Airway Patency, RR, SpO2: stable & adequate BP & HR: stable & adequate Hydration State: stable & adequate Anesthetic Complications: no major complications apparent and Pt Satisfied with anesthetic care Notes: The patient is awake and comfortable. He is neurologically intact. His neck is not swollen and his dressing is dry.
--- NOTE | 2020-05-31 15:34 | Oral/Maxillofacial Consult ---
Date of Consultation May 31, 2020 History of Present Illness Attending Physician: Paradise Martin DO I REVIEWED THE CHART AND REVIEWED THE MAXILLOFACIAL CT SCAN Completed consult at 11 am Jun 01 2020 Oral Maxillofacial Surgery Exam-Orbital Floor Fracture, facial trauma Recent Problem: Fell (tripped on carpet) at home fell hit right eye area, head --blow out orbital Fx right side cervical injury. Present Complaint: From history no pain associated with right eye, No history of Double vision associated with this event No double vision, paraesthesia or pain on movement A detailed facial exam was completed Finding-left eye all WNL, right eye swollen, well sutured facial laceration right side --I will remove sutures as Out patient in office exophthalmos--- not able to determine for right ROM secondary to moderate swelling. Soft swelling, no hematoma. CT scan--independent interpretation of the CT scan and discussion with radiologist as needed. Reviewed in 3-D mode There is a minimal Fx of the right orbital floor with no evidence of entrapment with some fat into sinus. Surgical repair not likely I will wait until all ecchymosis and swelling decreases. Facial and Orbital Soft tissue: Ecchymosis as expected from facial trauma. sutured laceration Neck: please refer to ortho-spine Dr Sow`s report Plan: I saw Mr Toribio this AM and did a full head/neck evaluation of the maxillofacial area. His right eye has normal vision, he can move it with a good ROM I reviewed that I will see him in office early next week We will range to get him an Eye exam and to have his glasses adjusted as needed He has my contact information I will arrange follow up as needed regarding the right blow out fracture Overall Multi fractures of the orbital floor an sinus hart minimal displacement I will evaluate and finalize treatment plan once all the swelling has subsided. Allergies Allergy/AdvReac Type Severity Reaction Status Date / Time Penicillins Allergy Unknown Unknown Verified 05/30/20 20:23 Sulfa (Sulfonamide Allergy Unknown Unknown Verified 05/30/20 20:23 Antibiotics) Home Medications Medication Instructions Recorded Confirmed Type finasteride 5 mg PO DAILY 05/05/19 05/30/20 History hydrochlorothiazide 25 mg PO DAILY 05/05/19 05/30/20 History metoprolol tartrate 50 mg PO BID 05/05/19 05/30/20 History glucos sul [id number]-Mn 2 cap PO BID 05/30/20 05/30/20 History [Glucosamine Chondroitin] lisinopril 40 mg PO DAILY 05/30/20 05/30/20 History multivitamin [Multiple Vitamin] 1 tab PO DAILY 05/30/20 05/30/20 History vitamin F85-[id number] acid 1 tab PO DAILY 05/30/20 05/30/20 History Patient History Medical History BPH (benign prostatic hyperplasia) Hypertension Surgical History History of cholecystectomy History of hernia repair Family History Other Family history non-contributory Social History (Updated 05/30/20 @ 22:57 by Missy Callaway DO) Smoking Status: Never smoker Second Hand Exposure: No; Hx Alcohol Use: Yes Alcohol type: beer, wine and hard liquor Hx Substance Use: No Preferred Language: [place] Communication Ability: Effective Certified Emergency Vehicle Technician Required: No Beliefs That Will Affect Care: None marital status: Current Living Situation: Spouse Feels Safe at Home: Yes Assistive Devices: Brace/Splint/Immobilizer and Walker Results & Data ([facility]) Vital Signs (Past 12 Hours) Vital Signs Temp Pulse Pulse Resp BP Pulse Ox 05/31/20 15:15 36.3 C L 75 16 115/64 95 05/31/20 15:04 36.3 C L 75 18 112/58 L 98 05/31/20 14:55 72 14 96/54 L 96 05/31/20 14:45 75 14 105/61 97 05/31/20 14:35 84 16 104/64 97 05/31/20 14:25 74 16 107/51 L 100 05/31/20 14:15 85 16 119/72 100 05/31/20 14:08 36.3 C L 96 H 16 125/78 98 05/31/20 11:22 36.8 C 85 20 135/76 98 05/31/20 07:35 36.6 C 89 20 136/76 97 PG Care Time/CCT Total # of Minutes Spent Total Time Spent with Patient: Total time spent is greater than 50% in coordination of care (as documented) at patient's floor/unit and/or counseling patient: Coding Level of Care Code 27145 Initial Inpt Care Lvl 3
[2020-05-31] MEDS ORDERED: PROMETHAZINE HCL 12.5 MG in SODIUM CHLORIDE 0.9% 50 ML IV PRN (15:51)
[2020-05-31] MEDS ORDERED: dexAMETHasone 8 MG in SYRINGE 0 ML IV PRN (15:51)
[2020-05-31] MEDS ORDERED: NALOXONE HCL 0.4 MG/1 ML VIAL/CARP IV PRN (15:51)
[2020-05-31] MEDS ORDERED: hydrOXYzine HCl 25 MG TAB PO PRN (15:51)
[2020-05-31] MEDS ORDERED: RACEPINEPHRINE 2.25% NEBU SOLN 0.5 ML VIAL INH PRN (15:51)
[2020-05-31] MEDS ORDERED: FAMOTIDINE 20 MG TAB PO PRN (15:51)
[2020-05-31] MEDS ORDERED: HYDROmorphone INJ 0.5 MG/0.5 ML SYR IV PRN (15:51)
[2020-05-31] MEDS ORDERED: ALUMINUM/MAGNESIUM SUSP 30 ML UDC PO PRN (15:51)
[2020-05-31] MEDS ORDERED: traMADol HCL 50 MG TABLET PO PRN (15:51)
[2020-05-31] MEDS ORDERED: ACETAMINOPHEN 1,000 MG/100 ML VIAL IV PRN (15:51)
[2020-05-31] MEDS ORDERED: SOD PHOSPHATE/SOD BIPHOSPHATE ENEMA 132 ML BTL PR PRN (15:51)
[2020-05-31] MEDS ORDERED: MAGNESIUM HYDROXIDE SUSP 30 ML UDC PO PRN (15:51)
[2020-05-31] MEDS ORDERED: METOCLOPRAMIDE HCL INJ 5 MG/ML 2 ML VIAL IV PRN (15:51)
[2020-05-31] MEDS ORDERED: ACETAMINOPHEN 500 MG TAB PO PRN (15:51)
[2020-05-31] MEDS ORDERED: LORazepam 0.5 MG TAB PO PRN (15:51)
[2020-05-31] MEDS ORDERED: DO NOT ADMINISTER PNEUMOCOCCAL VACCINE PRN (15:51)
[2020-05-31] MEDS ORDERED: DO NOT ADMINISTER FLU VACCINE PRN (15:51)
[2020-05-31] MEDS ORDERED: ONDANSETRON 4 MG OD TAB PO PRN (15:51)
[2020-05-31] MEDS ORDERED: diphenhydrAMINE Capsule 25 MG CAP PO PRN (15:51)
[2020-05-31] MEDS ORDERED: LORazepam 0.5 MG/1 ML VIAL IV PRN (15:51)
--- NOTE | 2020-05-31 16:51 | Electrocardiogram Report ---
Test Reason : Blood Pressure : / mmHG Vent. Rate : 083 BPM Atrial Rate : 083 BPM P-R Int : 196 ms QRS Dur : 092 ms QT Int : 386 ms P-R-T Axes : 054 049 066 degrees QTc Int : 453 ms Normal sinus rhythm Normal ECG When compared with ECG of 05-MAY-2019 02:00, No significant change was found Confirmed by Vitaly Darnell ([id number]) on 05/31/2020 4:50:42 PM Referred By: REFERRED SELF Confirmed By:Rakan Darnell
[2020-05-31] MEDS ORDERED: CLINDAMYCIN 600 MG in DEXTROSE 5% 50 ML IV SCH (17:00)
[2020-05-31] MEDS: POLYETHYLENE (MIRALAX) 17 GM PACK PO SCH ×2 (17:34→23:56)
[2020-05-31] MEDS: DOCUSATE SODIUM/SENNA 50/8.6MG TAB PO SCH (21:10)
[2020-06-01] MEDS: CLINDAMYCIN 900 MG in DEXTROSE 5% 50 ML IV SCH ×3 (02:43→18:37)
[2020-06-01] MEDS: LACTATED RINGER'S 1,000 ML IV SCH (04:49)
[2020-06-01] MEDS: POLYETHYLENE (MIRALAX) 17 GM PACK PO SCH ×4 (06:36→21:18)
[2020-06-01] MEDS: LIDOCAINE 5% 1 PATCH TD SCH (08:33)
[2020-06-01] MEDS: FINASTERIDE 5 MG TAB PO SCH (08:35)
[2020-06-01] MEDS: METOPROLOL TARTRATE 50 MG TAB PO SCH ×2 (08:35→21:18)
[2020-06-01 09:31] LABS: Hematocrit (blood only) 40.6 % (42-52); Hemoglobin 13.3 g/dL (14.0-18.0); Mean Corpuscular Hemoglobin 29.9 pg (25-34); Mean Corpuscular Hgb Conc 32.8 g/dL (32-36); Mean Corpuscular Volume 91.2 fL (80-100); Mean Platelet Volume 8.9 fL (7.4-10.4); Platelet Count 354 K/uL (130-400); RDW Coefficient of Variation 14.1 % (11.5-14.5); RDW Standard Deviation 47.7 fL (36.4-46.3); Red Blood Count 4.45 M/uL (4.7-6.1); White Blood Count 14.47 K/uL (4.8-10.8)
[2020-06-01 10:04] LABS: BUN Creatinine Ratio 22.7 (10-20); Creatinine Clr Calc Pharmacy 48.8 ml/min; Est GFR (African American) 52.9; Est GFR (Non-African American) 45.7; Potassium 4.5 mmol/L (3.5-5.1)
--- NOTE | 2020-06-01 12:02 | Orthopedic Progress Note ---
Date of Service June 01, 2020 Assessment & Plan (1) Injury to ligament of cervical spine: Admission and Anticipated Discharge Date Admission Date: May 30, 2020 At this time he is done quite well. From orthopedic standpoint he is okay for discharge today if cleared by medicine. I will need to see him in 2 weeks for follow-up. Subjective Patient's neck pain is controlled. Denies any arm pain numbness or tingling. Swallowing well. No hoarseness. Physical Exam Physical Exam: On exam is in the chair at the bedside. The cervical collar is fitting appropriately. Is excellent strength testing. Results & Data ([facility]) Vital Signs (Past 12 Hours) Vital Signs Temp Pulse Pulse Resp BP Pulse Ox 06/01/20 11:04 36.7 C 71 16 128/69 92 06/01/20 10:36 79 16 95 06/01/20 08:24 36.6 C 71 16 121/75 93 06/01/20 07:05 36.7 C 68 16 126/73 93 06/01/20 07:00 66 16 95 06/01/20 06:30 36.8 C 72 14 111/71 93 06/01/20 04:45 36.7 C 68 12 106/70 97 06/01/20 03:00 69 18 97 06/01/20 02:45 37.2 C 73 14 95/62 L 95 06/01/20 00:45 36.7 C 75 12 113/65 97
[2020-06-01] MEDS: DOCUSATE SODIUM/SENNA 50/8.6MG TAB PO SCH (19:25)
--- NOTE | 2020-06-01 19:58 | Hospitalist Progress Note ---
Date of Service June 01, 2020 Assessment & Plan (1) Ligament tear: s/p mechanical fall resulting in head trauma and anterior longitudinal ligament tear at C6-C7 with fluid/fracture. Possible small tear through the posterior longitudinal ligament at C5-C6. C5-C6 spinous process fracture. Patient with prevertebral edema from C6-T1. POD #1 s/p C5-C6 and C6-C7 fusion by Dr Sow. Neuro exam wnl today. Tolerating c-collar. Tolerating diet w/o dysphagia. Advance diet tonight. Hopefully home in am. PT/OT have evaluated - cleared for home with . (2) Cervical spine fracture: As above. S/p mechanical fall. POD #1 s/p cervical spine fusion by Dr Sow. Cont Macon J collar. (3) Orbital fracture: Right. No rx at this time. No compromise to extraocular muscles, vision, etc. Dr Troncoso saw in consult; will re-evaluate patient in office in about a week. (4) Forehead laceration: s/p repair in ER. sutures should be removed in about 7 days. sutures near right eye - also in about 7 days. (5) Hypertension: Blood pressure stable Cont to Hold Lisinopril and HCTZ Continue metoprolol (6) BPH (benign prostatic hyperplasia): Chronic Continue Finasteride No voiding issues (7) Chronic kidney disease, stage 3a: Cr 1.4 today and stable (8) DVT prophylaxis: chemical means contraindicated due to cervical spine surgery ambulation hopefully can d/c home tomorrow Admission and Anticipated Discharge Date Admission Date: May 30, 2020 Subjective patient tolerated clears for breakfast and then full liquids for lunch had emesis post-op yesterday but none today c/o expected neck pain but denies b/l arm pain or paresthesias denies weakness of arms/legs walking fine passing flatus but small amounts only no BM yet wishes to stay the night tonight to ensure he is tolerating diet Dr Troncoso saw patient today for right orbital fracture - no Rx needed at this time Review of Systems Constitutional: no fatigue and no anorexia Respiratory: no dyspnea Cardiovascular: no chest pain Gastrointestinal: no abdominal pain, no nausea and no vomiting Physical Exam Constitutional: well developed and well nourished; no acute distress and no altered mental status Eyes: EOM intact bilaterally laceration - well-approximated - just above right eye swelling and ecchymoses about the right orbit but no cellulitis ENMT: external ear and nose normal, oropharynx normal Neck: Macon J collar in place Respiratory: normal respiratory effort, lungs clear to auscultation Cardiovascular: RRR, no murmur, no edema Heart Sounds: normal S1 and normal S2 Vessels: posterior tibial pulses present and dorsalis pedis pulses present Gastrointestinal (Abdomen): normal bowel sounds, soft, nontender, no hepatosplenomegaly Skin: well-approximated laceration over right side of forehead with sutures intact Neurologic: moves all extremities (5/5 strength arms/legs ); no focal motor deficits Psychiatric: A+Ox3, euthymic affect Results & Data Results & Data ([facility]) Vital Signs (Past 12 Hours) Vital Signs Temp Pulse Resp BP Pulse Ox 06/01/20 19:30 37.0 C 84 16 124/75 92 06/01/20 18:21 36.7 C 79 18 110/69 92 06/01/20 16:30 36.5 C 72 16 120/72 97 06/01/20 15:08 36.9 C 77 18 104/64 94 06/01/20 14:30 36.8 C 73 16 96/64 L 92 06/01/20 14:27 73 16 91 06/01/20 12:21 36.8 C 73 16 110/70 91 06/01/20 11:04 36.7 C 71 16 128/69 92 06/01/20 10:36 79 16 95 06/01/20 08:24 36.6 C 71 16 121/75 93 Laboratory Results Laboratory Results - last 24 hr 06/01/20 06/01/20 09:19 09:19 WBC 14.47 H RBC 4.45 L Hgb 13.3 L Hct 40.6 L MCV 91.2 MCH 29.9 MCHC 32.8 RDW Std Deviation 47.7 H RDW Coeff of Gi 14.1 Plt Count 354 MPV 8.9 Sodium 141 Potassium 4.5 Chloride 113 H Carbon Dioxide 25 Anion Gap 3.0 BUN 33 H Creatinine 1.47 H Est Cr Clr Drug Dosing 48.8 Est GFR ( Amer) 52.9 Est GFR (Non-Af Amer) 45.7 BUN/Creatinine Ratio 22.7 H Glucose 94 Calcium 10.0 PG Care Time/CCT Total # of Minutes Spent Total Time Spent with Patient: Total time spent is greater than 50% in coordination of care (as documented) at patient's floor/unit and/or counseling patient: Coding Level of Care Code 64720 Subseq Hosp Care Lvl 2 Diagnoses Ligament tear T14.8XXA Cervical spine fracture S12.9XXA Orbital fracture S02.85XA Encounter type: initial encounter Fracture type: closed Forehead laceration S01.81XA Encounter type: initial encounter Hypertension I10 Hypertension type: essential hypertension BPH (benign prostatic hyperplasia) N40.0 Lower urinary tract symptom presence: symptoms absent Chronic kidney disease, stage 3a N18.31 DVT prophylaxis Z29.9 (1) BPH (benign prostatic hyperplasia) Lower urinary tract symptom presence: symptoms absent Qualified Code(s): N40.0 - Benign prostatic hyperplasia without lower urinary tract symptoms (2) Orbital fracture Encounter type: initial encounter Fracture type: closed Qualified Code(s): S02.85XA - Fracture of orbit, unspecified, initial encounter for closed fracture (3) Forehead laceration Encounter type: initial encounter Qualified Code(s): S01.81XA - Laceration without foreign body of other part of head, initial encounter (4) Hypertension Hypertension type: essential hypertension Qualified Code(s): I10 - Essential (primary) hypertension
[2020-06-02] MEDS ORDERED: COUGH DROP (SUGAR FREE) LOZ 24 LOZ/1 BOX BUCCAL ONE (02:17)
[2020-06-02] MEDS: CLINDAMYCIN 900 MG in DEXTROSE 5% 50 ML IV SCH ×2 (02:18→10:01)
[2020-06-02] MEDS: POLYETHYLENE (MIRALAX) 17 GM PACK PO SCH ×2 (05:37→12:32)
[2020-06-02] MEDS: LIDOCAINE 5% 1 PATCH TD SCH (08:12)
[2020-06-02] MEDS: METOPROLOL TARTRATE 50 MG TAB PO SCH (08:12)
[2020-06-02] MEDS: FINASTERIDE 5 MG TAB PO SCH (08:12)
[2020-06-02 11:22] LABS: Appearance Urine Clear (Clear); Bacteria Urine Automated Negative (Negative); Bilirubin Urine Negative (Negative); Blood Urine 1+ (Negative); Cast Urine Automated 0 /lpf (0-5); Color Urine Yellow; Epithelial Cell Urine Auto 0-5 /lpf (0-5); Glucose Urine UA Negative (Negative); Ketones Urine Negative (Negative); Leukocyte Esterase Urine Negative (Negative); Nitrite Urine Negative (Negative); Protein Urine Negative (Negative); Specific Gravity Urine 1.021 (1.000-1.030); Urobilinogen Urine Negative (Negative)
--- NOTE | 2020-06-02 11:38 | Oral/Maxillofacial Progress Nt ---
Date of Service Eyes are functioning well-good vision no ROM/Double vision issues doing very well today Plan is for Discharge I reviewed home care for his suture lines and eye trauma No double vision, no pain, excellent ROM I will see him early next week Doubtful if any repair of the right blow out fracture is indicted. I answered all of his question He has my contact information. June 02, 2020 Assessment & Plan Admission and Anticipated Discharge Date Admission Date: May 30, 2020 Results & Data ([facility]) Vital Signs (Past 12 Hours) Vital Signs Temp Pulse Pulse Resp BP Pulse Ox 06/02/20 11:18 37 C 70 16 104/67 92 06/02/20 11:00 68 16 92 06/02/20 08:11 81 124/68 06/02/20 07:51 36.8 C 75 18 130/72 92 06/02/20 07:00 83 16 94 06/02/20 05:27 92 06/02/20 05:24 36.6 C 70 18 118/77 87 L 06/02/20 03:09 74 18 93 PG Care Time/CCT Total # of Minutes Spent Total Time Spent with Patient: Total time spent is greater than 50% in coordination of care (as documented) at patient's floor/unit and/or counseling patient: Coding Level of Care Code 25396 Subseq Hosp Care Lvl 1
--- NOTE | 2020-06-02 12:26 | Discharge Summary ---
Date of Service date of admission - May 30, 2020 date of discharge - June 02, 2020 Admission HPI Per Admitting Provider Jaspreet Toribio is a 75yo male with history of HTN, BPH presenting after mechanical fall at home resulting in a C5-C6 spinous process fracture as well as full thic kness tear through the anterior longitudinal ligament at C6-C7 - additional findings per imaging results below. Patient suffered facial trauma as well with right periorbital and forehead lacerations. He was walking in his home when he tripped over the carpet and fell, hitting his head on the dining room table, neck extended during time of injury. He had pain and bleeding from the forehead and right eye immediately following the event. Denies pain elsewhere. He denies CP/palpitations/dizziness/SOB preceding or following the event. He has full recollection of the fall and does not think he lost consciousness. He denies [place], visual disturbance, numbness, weakness. Presently with discomfort at the laceration sites as well as right shoulder discomfort/trapezius muscle tenderness. No additional complaints at this time. Upon arrival to the ER patient afebrile, HD stable, NAD. Lacerations repaired at bedside without difficulty. Patient did have a brief near-syncopal event with hypotension while ER attending was probing his lacerations. BP quickly improved with no intervention. ER course: JOVANA Mckeon Principal Diagnosis C5-C6 spinous process fracture / full thickness tear of anterior longitudinal ligament at C6-C7 --- s/p anterior cervical discectomy with bilateral foraminotomies C5-C6 and C6-C7, along with anterior cervical arthrodesis C5- C6 and C6-C7 Discharge Exam Constitutional well developed and well nourished; no acute distress and no altered mental status Eyes PERRL and EOM intact bilaterally mild periorbital swelling right eye with resolving ecchymoses ENMT external ear and nose normal, oropharynx normal Neck dressing intact anterior neck; mild swelling anterior neck; [place] J collar present Respiratory normal respiratory effort, lungs clear to auscultation Cardiovascular RRR, no murmur, no edema Heart Sounds: normal S1 and normal S2 Vessels: posterior tibial pulses present and dorsalis pedis pulses present Gastrointestinal (Abdomen) normal bowel sounds, soft, nontender, no hepatosplenomegaly Skin laceration forehead, well-approximated, with multiple sutures; clean/dry/intact/no drainage. supraorbital laceration right, well-approximated with multiple sutures; old dried blood only present in this region. Neurologic moves all extremities (5/5 strength arms/legs ); no focal motor deficits Psychiatric A+Ox3, euthymic affect Discharge Data Allergies Allergy/AdvReac Type Severity Reaction Status Date / Time Penicillins Allergy Unknown Unknown Verified 05/30/20 20:23 Sulfa (Sulfonamide Allergy Unknown Unknown Verified 05/30/20 20:23 Antibiotics) Consultations Oromaxillofacial Surgery - Baron Argueta DMD Orthopedic Surgery - Shane Sow DO PT, OT Procedures Performed Operation Date: 05/31/20 12:25 Actual Procedures C5-C6, C6-C7 Anterior Cervical Discectomy and Fusion - Miguel Angel Sow DO Ordered Studies CT cervical spine wo con Stat IMPRESSION: Small lucency at the spinous process of C5 without surrounding edema. Therefore, this favors a vascular channel. A small nondisplaced fracture cannot be excluded. CT facial bones wo con Stat IMPRESSION: 1. Right orbital floor fracture which is mildly displaced and demonstrates a small amount of intraorbital fat herniating through a 5 mm defect. The right inferior rectus muscle slightly thickened but does not extend to the defect. Clinical correlation recommended to exclude the less likely possibility of entrapment. 2. Nondisplaced fracture within the medial wall of the right orbit. CT head/brain wo con Stat Impression: No acute intracranial abnormality. Right frontal scalp injury. 05/30/20 19:51 MR cervical spine wo con Stat IMPRESSION: 1. Edema both within and surrounding the C5 spinous process which would confirm the CT finding of an acute nondisplaced fracture at this location. 2. Full-thickness tear through the anterior longitudinal ligament at C6-C7 with fluid/fracture extending through the C6-C7 disc space. There is also suggestion of a small tear through the posterior longitudinal ligament at C5-C6. In conjunction with the C5-6 spinous process fracture, this is consistent with an unstable cervical spine injury. 3. Prevertebral edema from C6 through T1 due to the acute injury. 4. Trace fluid posterior to the C6 vertebral body measuring 1 mm in thickness. This could represent a tiny epidural hematoma versus edema secondary to the torn posterior longitudinal ligament. 05/30/20 22:02 CT angio neck with con Urgent IMPRESSION: Unremarkable CT angiogram of the neck. 05/31/20 12:00 FL cervical 2-3V Routine FL fluoroscopy <1hr Routine Hospital Course (1) Ligament tear: s/p mechanical fall resulting in head trauma and anterior longitudinal ligament tear at C6-C7 with fluid/fracture. Possible small tear through the posterior longitudinal ligament at C5-C6 as well. C5-C6 spinous process fracture. Patient with prevertebral edema from C6-T1. s/p C5-C6 and C6-C7 anterior discectomy and fusion by Dr Sow. Post-op course was uneventful with stable neurological exam. Mild dysphagia but improved prior to discharge. Diet was advanced to regular/soft without difficulty. Evaluated by PT/OT and cleared for home with . Anterior neck dressings were intact at discharge with no signs of bleeding. Patient will follow-up with Dr Sow 1 week post-discharge. (2) Cervical spine fracture: As above. S/p mechanical fall. s/p cervical spine fusion by Dr Sow. Cont [place] J collar after discharge. Patient instructed to wear the collar at all times except when eating and bathing. (3) Orbital fracture: Right. Seen by Dr Baron Argueta. No treatment needed during the hospitalization. No compromise to extraocular muscles, vision, etc. Dr Argueta will see the patient in the office in about a week post-discharge. (4) Forehead laceration: s/p repair in ER. sutures should be removed in about 7 days. sutures near right eye also should be removed in about 7 days. (5) Hypertension: Blood pressures were stable during the hospitalization. His lisinopril and HCTZ were held during the visit. These same 2 medications were held at discharge. He will continue metoprolol BID as previous. (6) BPH (benign prostatic hyperplasia): Chronic Continue Finasteride No voiding issues during the hospitalization (7) Chronic kidney disease, stage 3a: Cr 1.4 prior to discharge Baseline CrCl 40s Total Time Total Time Spent Total Time Spent (In Minutes): 40 Total Time Includes: Examination of the Patient, Discharge Planning, Medication Reconciliation and Communication With Other Providers Discharge Plan Discharge Items Patient Disposition: Home - Self-Care Reason For Visit: FALL, CERVICAL (NECK) FRACTURE Discharge Diagnosis: 1. cervical spine fracture - surgery by Dr Shane Sow (neck fusion surgery) 2. right orbital fracture 3. laceration to forehead 4. laceration to right supraorbital area 5. bruise/abrasion left knee 6. right patellar (kneecap) pain - likely due to bruise from your fall; no broken bones on x-rays of right knee Activity: Per Instructions section Activity Comment: see dedicated instructions from Dr Sow & Dr Argueta below Driving/Machine Use: NO DRIVING or OPERATING HEAVY MACHINERY Non-emergency contact: Primary Care Provider and Surgeon Call non-emergency contact if: you have any medication questions, your symptoms worsen, your pain is not controlled, your pain is worsening, your pain is unusual for you, your pain is concerning for you, you have a fever, your wound has increased redness, your wound has increased drainage and your wound pain has increased Follow-up/Referrals: Perry De La Rosa [Primary Care Provider] - 06/07/20 9:10 am (1-2 weeks ) Miguel Angel Sow DO [Surgeon] - 06/15/20 9:30 am (1 week for recheck of neck and incision) Baron Argueta DMD [Physician] - (June [address] Argueta - please call his office to confirm date & time ) Diet: Regular Diet Texture: Easy to Chew Addtl Attending Provider Instructions: ACTIVITY RECOMMENDATIONS - from Dr Sow: SELF CARE INSTRUCTIONS AFTER CERVICAL FUSIONS 1. No smoking. Smoking drastically decreases the chance of a solid fusion. 2. No bending, lifting more than 5 pounds, or twisting (roll like a log when turning in bed). 3. You may shower 3 days after surgery. Thoroughly dry wound. Do not soak in the tub. 4. Cervical collar: Must be worn at all times including sleeping. You may remove the brace only to bath, eat and if you are sitting in a recliner. 5. Please walk as much as you can for exercise. Gradually increase the distance that you walk as your endurance increases. SPECIAL CARE INSTRUCTIONS: VERY IMPORTANT TO READ AND REVIEW A. Do not take any anti-inflammatory medications (i.e. Indocin, Advil, Aspirin, Naprosyn, Aleve, Motrin, etc.) as these may inhibit the chance of a solid fusion. Tylenol is okay to take. B. Your surgical incision has been closed with a cosmetic suture under the skin that will dissolve in about 6 weeks. In 14 days, you can use a pair of clean scissors and cut the suture that is left outside of the skin at the ends of your incision. C. Complications are uncommon, but please contact us if you have any signs or symptoms of: 1. wound infection (fever higher than 102.5 degrees F, redness, separation of wound, drainage, or increasing pain from the incision) 2. blood clots in legs (pain, swelling, redness and warmth in legs) 3. urinary tract infection (fever higher than 102.5 degrees, burning upon urination or increased frequency of urination) 4. nerve problems (inability to walk on your toes or heels, numbness, loss of bowel or bladder control) 5. any other symptoms that concern you. D. Please call the office at if you have any concerns or questions about your operation or recovery. MANAGING PAIN AFTER SPINAL SURGERY 1. Narcotic medication is intended for short-term use and will be provided for surgical pain. Surgical pain usually lasts for a period of 4-6 weeks. We will provide you a prescription for hydrocodone-acetaminophen. 2. Longer-term pain is more appropriately treated with non-narcotic medication such as Tylenol Extra Strength. If you are taking the narcotic pain killer do NOT take [id number] tylenol as the narcotic pain killer has tylenol in it. 3. Muscle spasm is not appropriately treated with narcotics. Muscle relaxers such as Soma, Flexeril or Skelaxin can be used along with Tylenol ES. 4. Remember that we all live with some "aches and pains". This is not unusual or uncommon after an injury or as we get older. 5. We will provide appropriate medication within the normal guidelines of their prescribed use. We will also be very cautious and aware of potential abuse and extended duration of patients' medication needs. 6. Please allow 2-3 days to process refills. Prescriptions will not be mailed but must be picked up at the office. FOLLOW UP VISIT: Keep your scheduled follow-up appointment. Any questions, please call the office at . ------ FACIAL CARE INSTRUCTIONS--from DR ARGUETA: * Romayor teeth after every meal. It is very important to keep your mouth clean to prevent infection. VERY IMPORTANT TO KEEP THE SUTURE LINES VERY CLEAN TO PREVENT SCAB AND DRIED BLOOD TO BUILD UP SPECIAL CARE INSTRUCTIONS: * avoid blowing your nose *It is not uncommon that between day 2-4 that your swelling will be at its worst this is very normal, do not be alarmed. * use a warm compress on the suture lines (right side of face and forehead) you want to keep the suture line clean as this will make it easy to remove the sutures. * Some swelling is common. It should gradually decrease within 4-5 days. * A certain amount of bleeding is to be expected. It is often possible to control mild oozing by placing folded gauze over the area and biting down for 30 minutes. If you are unable to control excessive bleeding, call Dr Argueta at [phone] * If you notice any changes in your vision or are seeing double Call Dr Argueta * my office will call you to set up a follow up appointment to see Dr Argueta Additional instructions from Dr Mckeon, hospitalist -- 1. you will need to have your sutures (forehead, near right eye) removed in about 5-7 days. Your family doctor can do this or Dr Argueta can. Also the ER at [facility] can remove them. 2. for constipation - opgm-gsn-xpqalgi agents such as miralax and/or senna can be taken daily. 3. for pain - * hydrocodone-acetaminophen 1 tablet every 6 hours as needed * this is a narcotic pain killer -- these cause constipation and can cause you to be sleepy * no drinking alcohol while taking narcotic pain medication * no driving * do not take extra [id number]-eov-cqpqnmq tylenol if you take the hydrocodone as the pain killer contains tylenol 4. ice as needed for either knee 5. please HOLD your hydrochlorothiazide and lisinopril blood pressure medications for now as your blood pressures are normal without them at the present time. Please follow-up with Dr De La Rosa for your hypertension. Return to [facility] if - * you have fever over 100 degrees * you have worsening pain despite taking pain meds * you have worsening swelling, redness or drainage from the neck * you have worsening of your swallow * you have weakness or numbness of the arms or legs * any other concerns Best wishes for a speedy recovery! -Dr Mckeon Pending Studies at Discharge: Yes Studies:: urine culture, but your urinalysis does not look suspicious for urinary infection Stand-Alone Forms: [facility], Smoking Cessation Medications and DC Order Prescriptions: New ondansetron 4 mg Tablet,Disintegrating 4 mg PO Q6H PRN (Reason: nausea and vomiting) Qty: 10 RF: 0 hydrocodone-acetaminophen 5-325 mg tablet 1 tab PO Q6H PRN (Reason: pain) Qty: 20 RF: 0 Continued metoprolol tartrate 50 mg tablet 50 mg PO BID RF: 0 finasteride 5 mg tablet 5 mg PO DAILY RF: 0 multivitamin Tablet 1 tab PO DAILY RF: 0 vitamin T51-lhzpd acid 500-400 mcg Tablet 1 tab PO DAILY RF: 0 Glucosamine Chondroitin 550-30-1 mg Capsule 2 cap PO BID RF: 0 Discontinued hydrochlorothiazide 25 mg tablet 25 mg PO DAILY RF: 0 lisinopril 40 mg tablet 40 mg PO DAILY RF: 0 Discharge Orders: Discharge Order (Routine); Ordered 06/02/20 Ordered By: Lex Viveros/Other Patient Handouts: Discharge Instructions for ..., Discharge Instructions for ... Admission Data Admit Date/Time: 05/30/20 22:45 Attending Provider: Lex Mckeon Admit Provider: Missy Callaway Primary Care Provider: Perry De La Rosa Other Providers: Missy Callaway ; Baron Argueta ; Miguel Angel Sow Other Interventions: Discharge Summary Assessment (RN) Last Done: 06/02/20 14:07 Coding Level of Care Code D/C Day Management >30 mins Diagnoses Ligament tear T14.8XXA Cervical spine fracture S12.9XXA Orbital fracture S02.85XA Encounter type: initial encounter Fracture type: closed Forehead laceration S01.81XA Encounter type: initial encounter Hypertension I10 Hypertension type: essential hypertension BPH (benign prostatic hyperplasia) N40.0 Lower urinary tract symptom presence: symptoms absent Chronic kidney disease, stage 3a N18.31
--- NOTE | 2020-06-02 13:35 | XRay Report ---
XR knee RT 3V HISTORY: 75 years-old Male s/p fall/trauma, patellar pain; r/o Fx acute right knee pain status post fall COMPARISON: Leg length study radiographs 10/17/2017 TECHNIQUE: 3 views of the right knee FINDINGS: Mild medial and patellofemoral compartment osteoarthritis. Enthesophyte noted at the superior patella at the quadriceps insertion site. No acute fracture, dislocation, large joint effusion or opaque for eign body. IMPRESSION: No acute fracture. ACT 112: Negative or not required by law. The above report was generated using voice recognition software. It may contain grammatical, syntax o r spelling errors. Electronically signed by: Eyad Sanchez M.D. 06/02/2020 1:34 PM
[2020-06-02] MEDS ORDERED: bisacodyL 10 MG SUPP PR PRN (14:03)
== END 2020-06-02 15:07 | disposition home or self-care (01) ==
LOC: ED 18:02 → 3W 22:45 → SUATTDRO 22:45 → 3W 05-31 00:57 → 3E 05-31 15:39